=== PATIENT | female | born 1975 | race Two or more races ===

== ENCOUNTER 2016-10-14 17:00 | Emergency (ER) | payer SELFPAY ==
--- NOTE | 2016-10-14 17:32 | ER Document Report ---
ED Medical Screen (RME) - General Stated Complaint: NAUSEA Time seen by provider: 17:29 Mode of Arrival: Ambulatory Information source: Patient Notes: 41 yo female c/o burning LUQ abd pain for 3 days. Mild at first. Now 5/5 since 2 pm today. Soft BM today. No blood or mucos. No bowel disease. worse when sitting down, vomited 3 times today. No UTI sx, no flaank pain. No hx GERD TRAVEL OUTSIDE OF THE [place] IN LAST 30 DAYS: No - Related Data Allergies/Adverse Reactions: No Known Allergies Allergy (Verified 10/14/16 17:29) Past Medical History - Past Medical History Cardiac Medical History: Reports: Hx Hypertension Pulmonary Medical History: Denies: Hx Tuberculosis Neurological Medical History: Reports: Hx Migraine Endocrine Medical History: Denies: Hx Diabetes Mellitus Type 1, Hx Diabetes Mellitus Type 2 GI Medical History: Reports: Hx Diverticulitis. Denies: Hx Crohn's Disease, Hx Irritable Bowel, Hx Ulcerative Colitis Psychiatric Medical History: Denies: Hx Depression Past Surgical History: Reports: Hx Cholecystectomy. Denies: Hx Abdominal Surgery, Hx Appendectomy, Hx Bowel Surgery, Hx Breast Surgery, Hx Cardiac Catheterization, Hx Cardiac Surgery, Hx Section, Hx Genitourinary Surgery, Hx Gynecologic Surgery, Hx Hysterectomy, Hx Kidney (Renal Surgery), Hx Mastectomy, Hx Neurologic Surgery, Hx Nose Surgery, Hx Open Heart Surgery, Hx Oral Surgery, Hx Orthopedic Surgery, Hx Pacemaker, Hx Pancreatic Surgery, Hx Pituitary Surgery, Hx Rectal Surgery, Hx Thyroid Surgery, Hx Tonsillectomy, Hx Tubal Ligation, Hx Urinary Tract Surgery, Hx Vascular Surgery - Immunizations Hx Diphtheria, Pertussis, Tetanus Vaccination: No
[2016-10-14] MEDS ORDERED: LANSOPRAZOLE 30 MG TAB.RAP.DR PO ONE ×2 (17:33→19:01)
[2016-10-14] MEDS ORDERED: FAMOTIDINE 20 MG TABLET PO ONE (17:33)
[2016-10-14 18:03] LABS: ABSOLUTE BASOPHILS # (AUTO) 0.1 10^3/uL (0.0-0.2); ABSOLUTE EOSINOPHILS # (AUTO) 1.6 10^3/uL (0.0-0.6); ABSOLUTE LYMPHOCYTES (AUTO) 2.5 10^3/uL (0.5-4.7); ABSOLUTE MONOCYTES (AUTO) 0.6 10^3/uL (0.1-1.4); ABSOLUTE NEUT (AUTO) 4.4 10^3/uL (1.7-8.2); BASOPHILS % (AUTO) 1.1 % (0-2); EOSINOPHILS % (AUTO) 16.9 % (0-6); HEMATOCRIT 39.2 % (36.0-47.0); HEMOGLOBIN 13.1 g/dL (12.0-15.5); HGB HCT DIFFERENCE 0.1; LYMPHOCYTES % (AUTO) 27.3 % (13-45); MEAN CORPUSCULAR HEMOGLOBIN 28.5 pg (27.0-33.4); MEAN CORPUSCULAR HGB CONC 33.5 g/dL (32.0-36.0); MEAN CORPUSCULAR VOLUME 85 fl (80-97); MONOCYTES % (AUTO) 6.9 % (3-13); RED CELL DISTRIBUTION WIDTH 14.2 % (11.5-14.0); SEGMENTED NEUTROPHILS % (AUTO) 47.8 % (42-78); WHITE BLOOD COUNT 9.2 10^3/uL (4.0-10.5)
[2016-10-14 18:05] LABS: APPEARANCE,URINE CLEAR; BILIRUBIN,URINE NEGATIVE (NEGATIVE); GLUCOSE, URINE NEGATIVE (NEGATIVE); KETONES,URINE NEGATIVE (NEGATIVE); LEUKOCYTE ESTERASE,URINE NEGATIVE (NEGATIVE); NITRITE,URINE NEGATIVE (NEGATIVE); PROTEIN,URINE NEGATIVE (NEGATIVE); URINE SPECIFIC GRAVITY 1.009; UROBILINOGEN,URINE NEGATIVE mg/dL (<2.0)
[2016-10-14 18:11] LABS: ALANINE AMINOTRANSFERASE 26 U/L (9-52); ALBUMIN 4.4 g/dL (3.5-5.0); ALKALINE PHOSPHATASE 77 U/L (38-126); ANION GAP 10 (5-19); ASPARTATE AMINO TRANSFERASE 21 U/L (14-36); BILIRUBIN,TOTAL 0.5 mg/dL (0.2-1.3); BLOOD UREA NITROGEN 14 mg/dL (7-20); CALCIUM 9.7 mg/dL (8.4-10.2); CARBON DIOXIDE 27 mmol/L (22-30); CHLORIDE 104 mmol/L (98-107); CREATININE RESULT 0.64 mg/dL (0.52-1.25); GLUCOSE 88 mg/dL (75-110); POTASSIUM 4.4 mmol/L (3.6-5.0); SODIUM 141.3 mmol/L (137-145); TOTAL PROTEIN 7.6 g/dL (6.3-8.2)
--- NOTE | 2016-10-14 18:14 | ER Document Report ---
ED General - General Chief Complaint: Abdominal Pain Stated Complaint: NAUSEA Time seen by provider: 18:14 Mode of Arrival: Ambulatory Information source: Patient Notes: 41 year old female with 3 day history of epigastric and left upper quadrant pain with nausea and vomiting. He reports eating sometimes makes symptoms worse. Asbell of yesterday was normal. She denies diarrhea. Denies vaginal bleeding or discharge. Denies dysuria urgency frequency. He reports no chest pain or back pain. She denies any lower abdominal pain. She reports she is already had her gallbladder removed. Physical Exam: General: Alert, appears well. HEENT: Normocephalic. Atraumatic. PERRLA. Extraocular movements intact. Oropharynx clear. Neck: Supple. Non-tender. Respiratory: No respiratory distress. Clear and equal breath sounds bilaterally. Cardiovascular: Regular rate and rhythm. Abdominal: Mild epigastric and right or quadrant tenderness to deep palpation. No referred pain. No guarding rebound rigidity. Bowel sounds positive. Palpation of epigastric region and left upper quadrant reproduces patient's pain. Back: Non-tender. No deformity or step off. Extremities: Moves all four extremities. No gross deformity Neurological: Mentation clear speech clear no lateralizing signs Psychological: Normal affect. Normal Mood. Skin: Warm. Dry. Normal color. TRAVEL OUTSIDE OF THE [place] IN LAST 30 DAYS: No - Related Data Allergies/Adverse Reactions: No Known Allergies Allergy (Verified 10/14/16 17:31) Past Medical History - General Information source: Patient - Social History Smoking Status: Never Smoker Chew tobacco use (# tins/day): No Frequency of alcohol use: Occasional Drug Abuse: None Family History: CAD - Reports mother with stent placed in her 40s, Hypertension Patient has suicidal ideation: No Patient has homicidal ideation: No - Past Medical History Cardiac Medical History: Reports: Hx Hypertension Pulmonary Medical History: Denies: Hx Tuberculosis Neurological Medical History: Reports: Hx Migraine Endocrine Medical History: Denies: Hx Diabetes Mellitus Type 1, Hx Diabetes Mellitus Type 2 GI Medical History: Reports: Hx Diverticulitis. Denies: Hx Crohn's Disease, Hx Irritable Bowel, Hx Ulcerative Colitis Psychiatric Medical History: Denies: Hx Depression Past Surgical History: Reports: Hx Cholecystectomy. Denies: Hx Abdominal Surgery, Hx Appendectomy, Hx Bowel Surgery, Hx Breast Surgery, Hx Cardiac Catheterization, Hx Cardiac Surgery, Hx Section, Hx Genitourinary Surgery, Hx Gynecologic Surgery, Hx Hysterectomy, Hx Kidney (Renal Surgery), Hx Mastectomy, Hx Neurologic Surgery, Hx Nose Surgery, Hx Open Heart Surgery, Hx Oral Surgery, Hx Orthopedic Surgery, Hx Pacemaker, Hx Pancreatic Surgery, Hx Pituitary Surgery, Hx Rectal Surgery, Hx Thyroid Surgery, Hx Tonsillectomy, Hx Tubal Ligation, Hx Urinary Tract Surgery, Hx Vascular Surgery - Immunizations Hx Diphtheria, Pertussis, Tetanus Vaccination: No Hx Pneumococcal Vaccination: 10/07/14 Review of Systems - Review of Systems Constitutional: denies: Chills, Fever EENT: denies: Ear pain, Throat pain Cardiovascular: denies: Chest pain Respiratory: denies: Cough, Short of breath Gastrointestinal: See HPI Genitourinary: denies: Burning, Dysuria Female Genitourinary: Last menstrual period - September 28 normal for her. denies: Vaginal discharge Musculoskeletal: denies: Back pain Hematologic/Lymphatic: denies: Swollen glands Neurological/Psychological: denies: Weakness, Numbness Course - Re-evaluation Re-evalutation: 10/14/16 19:03 Patient reports no change in symptoms he does have mild epigastric and left upper quadrant pain. She does not have a surgical abdomen. Laboratory reports been unremarkable and her gallbladder is already out. She will be treated for gastritis with Prevacid and Carafate as an outpatient and asked to follow-up as outpatient - Laboratory Result Diagrams: 10/14/16 17:40 10/14/16 17:40 Laboratory results interpreted by me: 10/14/16 17:40 RDW 14.2 H Eosinophils % 16.9 H Absolute Eosinophils 1.6 H Discharge - Discharge Clinical Impression: Gastritis Qualifiers: Gastritis type: unspecified gastritis Chronicity: acute Gastritis bleeding: without bleeding Qualified Code(s): K29.00 - Acute gastritis without bleeding Condition: Stable Disposition: HOME, SELF-CARE Instructions: Abdominal Pain ([facility]) Additional Instructions: Gastritis You have an inflammation of the stomach called gastritis. This commonly causes upper abdominal pain, nausea, and vomiting. In severe cases, bleeding of the stomach lining can occur. Gastritis can be caused by bacteria or viruses , alcohol, or stomach-irritating drugs. Begin with sips of clear liquids. Take increasing amounts of fluid over the first 24 hours. Then start small amounts of bland foods (such as dry toast , applesauce, mashed potato). Gradually resume your usual diet. You should take antacids every two hours until the pain has subsided. Acid -suppressing drugs may be prescribed as well. Avoid aspirin, caffeine, tobacco , and alcohol. If the abdominal pain worsens, or there is evidence of major bleeding in the stomach (such as black, tarry stool, bloody or black vomit, or lightheadedness), you should return immediately. Call the doctor if you aren't improved in 24 to 36 hours. Prescriptions: Lansoprazole [Prevacid 30 Mg Odt Tablet] 30 mg PO BID #30 tab.rap. Sucralfate [Carafate 1 gm Tablet] 1 gm PO ACHS #60 tablet Referrals: ANTONIO CALVO MD [ACTIVE STAFF] - 10/22/16
[2016-10-14] MEDS ORDERED: SUCRALFATE 1 GM TABLET PO ONE (19:01)
[2016-10-14] MEDS ORDERED: LIDOCAINE 2% VISCOUS SOLN 20 ML UDCUP PO ONE (19:03)
[2016-10-14] MEDS ORDERED: METOCLOPRAMIDE HCL ORAL SOLN 10 MG/10 ML UDCUP PO ONE (19:03)
[2016-10-14] MEDS ORDERED: MAG HYDROX/AL HYDROX/SIMETH SUSP 30 ML UDCUP PO ONE (19:03)
[2016-10-14 19:41] VITALS: BP 128/77
== END 2016-10-14 19:40 | disposition home or self-care (01) ==
LOC: ER 17:00
DX: K29.00 Acute gastritis without bleeding (principal); R10.9 Unspecified abdominal pain; R11.0 Nausea; R10.13 Epigastric pain; R10.12 Left upper quadrant pain; R11.2 Nausea with vomiting, unspecified
CPT/HCPCS: 99284; 36415; 87086; 83690; 84703; 85025; 80053; 81001; J3490

== ENCOUNTER 2017-03-05 16:10 | Emergency (ER) | payer SELFPAY ==
[2017-03-05] MEDS ORDERED: METOPROLOL SUCCINATE 25 MG TAB.SR.24H PO ONE (18:53)
[2017-03-05] MEDS ORDERED: ONDANSETRON 4 MG TAB.RAPDIS PO ONE (18:54)
--- NOTE | 2017-03-05 18:56 | ER Document Report ---
ED Medical Screen (RME) - General Chief Complaint: Headache Stated Complaint: NAUSEA,ABDOMINAL AND BACK PAIN Time Seen by Provider: 03/05/17 18:45 Mode of Arrival: Ambulatory Information source: Patient Notes: This is a 41-year-old female with a history of hypertension who presents with headache and nausea for the past week. She states that she ran out of her metoprolol last week. She has an appointment with her primary care physician later this week to refill her medication. She has no current chest pain but did feel some chest pain last night while she was trying to sleep. She has had no vomiting only nausea. No fevers or chills. No vision changes. No numbness or tingling. I have greeted and performed a rapid initial assessment of this patient. A comprehensive ED assessment and evaluation of the patient, analysis of test results and completion of the medical decision making process will be conducted by additional ED providers. TRAVEL OUTSIDE OF THE [place] IN LAST 30 DAYS: No - Related Data Allergies/Adverse Reactions: No Known Allergies Allergy (Verified 03/05/17 18:28) Past Medical History - Past Medical History Cardiac Medical History: Reports: Hx Hypertension Pulmonary Medical History: Denies: Hx Tuberculosis Neurological Medical History: Reports: Hx Migraine Endocrine Medical History: Denies: Hx Diabetes Mellitus Type 1, Hx Diabetes Mellitus Type 2 Renal/ Medical History: Denies: Hx Peritoneal Dialysis GI Medical History: Reports: Hx Diverticulitis. Denies: Hx Crohn's Disease, Hx Irritable Bowel, Hx Ulcerative Colitis Psychiatric Medical History: Denies: Hx Depression Past Surgical History: Reports: Hx Cholecystectomy. Denies: Hx Abdominal Surgery, Hx Appendectomy, Hx Bowel Surgery, Hx Breast Surgery, Hx Cardiac Catheterization, Hx Cardiac Surgery, Hx Section, Hx Genitourinary Surgery, Hx Gynecologic Surgery, Hx Hysterectomy, Hx Kidney (Renal Surgery), Hx Mastectomy, Hx Neurologic Surgery, Hx Nose Surgery, Hx Open Heart Surgery, Hx Oral Surgery, Hx Orthopedic Surgery, Hx Pacemaker, Hx Pancreatic Surgery, Hx Pituitary Surgery, Hx Rectal Surgery, Hx Thyroid Surgery, Hx Tonsillectomy, Hx Tubal Ligation, Hx Urinary Tract Surgery, Hx Vascular Surgery - Immunizations Hx Diphtheria, Pertussis, Tetanus Vaccination: No Physical Exam - Vital signs Vitals: Temp Pulse Resp BP Pulse Ox 98.6 F 87 16 184/110 H 98 03/05/17 17:06 03/05/17 17:06 03/05/17 17:06 03/05/17 17:06 03/05/17 17:06 - General General appearance: Appears well, Alert In distress: None - Respiratory Respiratory status: No respiratory distress Breath sounds: Normal. No: Rales, Rhonchi, Wheezing - Cardiovascular Rhythm: Regular Heart sounds: Normal auscultation, S1 appreciated, S2 appreciated Murmur: No - Neurological Neuro grossly intact: Yes Cognition: Normal Orientation: AAOx4 Course - Vital Signs Vital signs: Temp Pulse Resp BP Pulse Ox 98.6 F 87 16 184/110 H 98 03/05/17 17:06 03/05/17 17:06 03/05/17 17:06 03/05/17 17:06 03/05/17 17:06 - Laboratory Result Diagrams: 03/05/17 19:04 03/05/17 19:04 Laboratory results interpreted by me: 03/05/17 03/05/17 19:04 19:04 RDW 14.1 H Eosinophils % 12.4 H Absolute Eosinophils 1.1 H Urine Blood MODERATE H Ur Leukocyte Esterase TRACE H
[2017-03-05 19:30] LABS: APPEARANCE,URINE CLOUDY; BILIRUBIN,URINE NEGATIVE (NEGATIVE); GLUCOSE, URINE NEGATIVE (NEGATIVE); KETONES,URINE NEGATIVE (NEGATIVE); LEUKOCYTE ESTERASE,URINE TRACE (NEGATIVE); NITRITE,URINE NEGATIVE (NEGATIVE); PROTEIN,URINE NEGATIVE (NEGATIVE); URINE SPECIFIC GRAVITY 1.009; UROBILINOGEN,URINE NEGATIVE mg/dL (<2.0)
[2017-03-05 19:31] LABS: ABSOLUTE BASOPHILS # (AUTO) 0.1 10^3/uL (0.0-0.2); ABSOLUTE EOSINOPHILS # (AUTO) 1.1 10^3/uL (0.0-0.6); ABSOLUTE LYMPHOCYTES (AUTO) 2.5 10^3/uL (0.5-4.7); ABSOLUTE MONOCYTES (AUTO) 0.5 10^3/uL (0.1-1.4); ABSOLUTE NEUT (AUTO) 4.7 10^3/uL (1.7-8.2); BASOPHILS % (AUTO) 0.9 % (0-2); EOSINOPHILS % (AUTO) 12.4 % (0-6); LYMPHOCYTES % (AUTO) 28.4 % (13-45); MEAN CORPUSCULAR HEMOGLOBIN 27.9 pg (27.0-33.4); MEAN CORPUSCULAR HGB CONC 33.4 g/dL (32.0-36.0); MEAN CORPUSCULAR VOLUME 84 fl (80-97); MONOCYTES % (AUTO) 5.5 % (3-13); RED BLOOD COUNT 4.66 10^6/uL (3.72-5.28); RED CELL DISTRIBUTION WIDTH 14.1 % (11.5-14.0); SEGMENTED NEUTROPHILS % (AUTO) 52.8 % (42-78); WHITE BLOOD COUNT 8.9 10^3/uL (4.0-10.5)
[2017-03-05 19:39] LABS: ALANINE AMINOTRANSFERASE 27 U/L (9-52); ALBUMIN 4.2 g/dL (3.5-5.0); ALKALINE PHOSPHATASE 107 U/L (38-126); ANION GAP 11 (5-19); ASPARTATE AMINO TRANSFERASE 20 U/L (14-36); BILIRUBIN,DIRECT 0.3 mg/dL (0.0-0.4); BILIRUBIN,TOTAL 0.5 mg/dL (0.2-1.3); BLOOD UREA NITROGEN 13 mg/dL (7-20); CALCIUM 9.7 mg/dL (8.4-10.2); CARBON DIOXIDE 25 mmol/L (22-30); CHLORIDE 103 mmol/L (98-107); CREATINE KINASE 77 U/L (30-135); CREATININE RESULT 0.64 mg/dL (0.52-1.25); GLUCOSE 93 mg/dL (75-110); POTASSIUM 4.4 mmol/L (3.6-5.0); SODIUM 138.8 mmol/L (137-145); TOTAL PROTEIN 8.1 g/dL (6.3-8.2)
[2017-03-05 19:50] LABS: CREATINE KINASE MB 0.51 ng/mL (<4.55); TROPONIN I < 0.012 ng/mL
[2017-03-05] MEDS ORDERED: DIPHENHYDRAMINE HCL 50 MG/ML VIAL IV ONE (20:16)
[2017-03-05] MEDS ORDERED: KETOROLAC TROMETHAMINE INJ/PF 30 MG/1 ML SDV IV ONE (20:16)
[2017-03-05] MEDS ORDERED: NORMAL SALINE 1000 ML 1,000 ML IV PRN (20:16)
[2017-03-05] MEDS ORDERED: METOCLOPRAMIDE HCL INJ/PF 10 MG/2 ML SDV IV ONE (20:16)
[2017-03-05] MEDS ORDERED: CLONIDINE HCL 0.1 MG TABLET PO ONE (20:16)
--- NOTE | 2017-03-05 20:19 | ER Document Report ---
ED General - General Chief Complaint: Headache Stated Complaint: NAUSEA,ABDOMINAL AND BACK PAIN Time Seen by Provider: 03/05/17 18:45 Mode of Arrival: Ambulatory Information source: Patient TRAVEL OUTSIDE OF THE [place] IN LAST 30 DAYS: No - HPI Patient complains to provider of: Headache, nausea, dizziness, suprapubic pain Onset: Last week Onset/Duration: Persistent Quality of pain: Achy Severity: Moderate Pain Level: 3 Associated symptoms: Chills, Headache, Nausea Exacerbated by: Denies Relieved by: Denies Similar symptoms previously: No Recently seen / treated by doctor: No Notes: Patient is a 41-year-old female with a history of hypertension who presents to the emergency room complaining of headache with high blood pressure, cold chills , nausea next, dizziness, neck pain, symptoms have been going on for the past 3 days, she ran out of her blood pressure medication approximately 1 week ago, denies any injury, no vomiting, no fever - Related Data Allergies/Adverse Reactions: No Known Allergies Allergy (Verified 03/05/17 18:28) Past Medical History - General Information source: Patient - Social History Smoking Status: Never Smoker Frequency of alcohol use: Occasional Family History: CAD - Reports mother with stent placed in her 40s, Hypertension - Past Medical History Cardiac Medical History: Reports: Hx Hypertension Pulmonary Medical History: Denies: Hx Tuberculosis Neurological Medical History: Reports: Hx Migraine Endocrine Medical History: Denies: Hx Diabetes Mellitus Type 1, Hx Diabetes Mellitus Type 2 Renal/ Medical History: Denies: Hx Peritoneal Dialysis GI Medical History: Reports: Hx Diverticulitis. Denies: Hx Crohn's Disease, Hx Irritable Bowel, Hx Ulcerative Colitis Psychiatric Medical History: Denies: Hx Depression Past Surgical History: Reports: Hx Cholecystectomy. Denies: Hx Abdominal Surgery, Hx Appendectomy, Hx Bowel Surgery, Hx Breast Surgery, Hx Cardiac Catheterization, Hx Cardiac Surgery, Hx Section, Hx Genitourinary Surgery, Hx Gynecologic Surgery, Hx Hysterectomy, Hx Kidney (Renal Surgery), Hx Mastectomy, Hx Neurologic Surgery, Hx Nose Surgery, Hx Open Heart Surgery, Hx Oral Surgery, Hx Orthopedic Surgery, Hx Pacemaker, Hx Pancreatic Surgery, Hx Pituitary Surgery, Hx Rectal Surgery, Hx Thyroid Surgery, Hx Tonsillectomy, Hx Tubal Ligation, Hx Urinary Tract Surgery, Hx Vascular Surgery - Immunizations Hx Diphtheria, Pertussis, Tetanus Vaccination: No Hx Pneumococcal Vaccination: 10/07/14 Review of Systems - Review of Systems Constitutional: No symptoms reported EENT: No symptoms reported Cardiovascular: Chest pain Respiratory: No symptoms reported Gastrointestinal: See HPI Genitourinary: No symptoms reported Female Genitourinary: No symptoms reported Musculoskeletal: See HPI Skin: No symptoms reported Hematologic/Lymphatic: No symptoms reported Neurological/Psychological: Headaches -: Yes All other systems reviewed and negative Physical Exam - Vital signs Vitals: Temp Pulse Resp BP Pulse Ox 98.6 F 87 16 184/110 H 98 03/05/17 17:06 03/05/17 17:06 03/05/17 17:06 03/05/17 17:06 03/05/17 17:06 Interpretation: Hypertensive - General General appearance: Appears well, Alert - HEENT Head: Normocephalic, Atraumatic Eyes: Normal Pupils: PERRL - Respiratory Respiratory status: No respiratory distress Chest status: Nontender Breath sounds: Normal Chest palpation: Normal - Cardiovascular Rhythm: Regular Heart sounds: Normal auscultation Murmur: No - Abdominal Inspection: Normal Distension: No distension Bowel sounds: Normal Tenderness: Tender - Suprapubic Organomegaly: No organomegaly - Back Back: Normal, Nontender - Extremities General upper extremity: Normal inspection, Nontender, Normal color, Normal ROM , Normal temperature General lower extremity: Normal inspection, Nontender, Normal color, Normal ROM , Normal temperature, Normal weight bearing. No: Darinel's sign - Neurological Neuro grossly intact: Yes Cognition: Normal Orientation: AAOx4 Julio Coma Scale Eye Opening: Spontaneous [place] Coma Scale Verbal: Oriented Julio Coma Scale Motor: Obeys Commands Julio Coma Scale Total: 15 Speech: Normal Motor strength normal: LUE, RUE, LLE, RLE Sensory: Normal - Psychological Associated symptoms: Normal affect, Normal mood - Skin Skin Temperature: Warm Skin Moisture: Dry Skin Color: Normal Course - Re-evaluation Re-evalutation: 03/05/17 22:09 Reports feeling much better on reevaluation, headache is resolved, blood pressure is improved, she will be discharged with antibiotics and blood pressure medication as well as information for follow-up, imaging studies were discussed with her well, which are unremarkable, patient acknowledges understanding and agreement with this plan - Vital Signs Vital signs: Temp Pulse Resp BP Pulse Ox 98.6 F 87 16 133/94 H 99 03/05/17 17:06 03/05/17 17:06 03/05/17 17:06 03/05/17 21:31 03/05/17 21:31 - Laboratory Result Diagrams: 03/05/17 19:04 03/05/17 19:04 Laboratory results interpreted by me: 03/05/17 03/05/17 19:04 19:04 RDW 14.1 H Eosinophils % 12.4 H Absolute Eosinophils 1.1 H Urine Blood MODERATE H Ur Leukocyte Esterase TRACE H - Diagnostic Test Radiology reviewed: Image reviewed, Reports reviewed Discharge - Discharge Clinical Impression: Essential hypertension Urinary tract infection Qualifiers: Urinary tract infection type: site unspecified Hematuria presence: without hematuria Qualified Code(s): N39.0 - Urinary tract infection, site not specified Condition: Stable Disposition: HOME, SELF-CARE Instructions: Urinary Tract Infection ([facility]), Headache ([facility]), High Blood Pressure ([facility]) Additional Instructions: Follow up with your primary care provider in one to 2 days. Return to the emergency room immediately if symptoms worsen or any additional concerns. Prescriptions: Metoprolol Succinate [Toprol Xl] 25 mg PO QHS #30 tab.sr.24h Cephalexin Monohydrate [Keflex 500 mg Capsule] 500 mg PO BID #20 capsule
--- NOTE | 2017-03-05 21:06 | RADIOLOGY REPORT (SQ) ---
EXAM DESCRIPTION: CHEST PA/LAT COMPLETED DATE/TIME: 03/05/2017 8:56 pm REASON FOR STUDY: cp COMPARISON: None. EXAM PARAMETERS: NUMBER OF VIEWS: two views TECHNIQUE: Digital Frontal and Lateral radiographic views of the chest acquired. RADIATION DOSE: NA LIMITATIONS: none FINDINGS: LUNGS AND PLEURA: No opacities, masses or pneumothorax. No pleural effusion. MEDIASTINUM AND HILAR STRUCTURES: No masses or contour abnormalities. HEART AND VASCULAR STRUCTURES: The configuration of the heart and mediastinal structures is unchanged BONES: No acute findings. HARDWARE: None in the chest. OTHER: No other significant finding. IMPRESSION: NO SIGNIFICANT RADIOGRAPHIC FINDING IN THE CHEST. TECHNICAL DOCUMENTATION: JOB ID: [id number] [employer]- All Rights Reserved
--- NOTE | 2017-03-05 21:28 | RADIOLOGY REPORT (SQ) ---
EXAM DESCRIPTION: CT HEAD WITHOUT COMPLETED DATE/TIME: 03/05/2017 9:10 pm REASON FOR STUDY: COMBS, htn COMPARISON: June 2013 TECHNIQUE: Axial images acquired through the brain without intravenous contrast. Images reviewed wi th bone, brain and subdural windows. Images stored on PACS. All CT scanners at this facility use dose modulation, iterative reconstruction, and/or weight based d osing when appropriate to reduce radiation dose to as low as reasonably achievable (ALARA). [facility]: Dose Right [facility]: CareDose [facility]: Dose Right [facility]: Teradose 4D [facility]: [employer] RADIATION DOSE: 64.61 mGy. LIMITATIONS: None. FINDINGS: VENTRICLES: Normal size and contour. CEREBRUM: No masses. No hemorrhage. No midline shift. Normal hernandez/white matter differentiation. N o evidence for acute infarction. CEREBELLUM: No masses. No hemorrhage. No alteration of density. No evidence for acute infarction. EXTRAAXIAL SPACES: No fluid collections. No masses. ORBITS AND GLOBE: No intra- or extraconal masses. Normal contour of globe without masses. CALVARIUM: No fracture. PARANASAL SINUSES: No fluid or mucosal thickening. SOFT TISSUES: No mass or hematoma. OTHER: No other significant finding. IMPRESSION: NORMAL BRAIN CT WITHOUT CONTRAST. TECHNICAL DOCUMENTATION: JOB ID: [id number] Quality ID # [id number]: Final reports with documentation of one or more dose reduction techniques (e.g., Au tomated exposure control, adjustment of the mA and/or kV according to patient size, use of iterative reconstruction technique) 2010 [employer]- All Rights Reserved
[2017-03-05] MEDS ORDERED: CEPHALEXIN 500 MG CAPSULE PO ONE (22:12)
[2017-03-05 22:27] VITALS: BP 121/85
--- NOTE | 2017-03-06 00:29 | EKG REPORT ---
SEVERITY:- BORDERLINE ECG - SINUS RHYTHM BORDERLINE T ABNORMALITIES, ANTERIOR LEADS : Confirmed by: Juan Daniel Banuelos 06-Mar-2017 00:28:59
== END 2017-03-05 22:31 | disposition home or self-care (01) ==
LOC: ER 16:10
DX: I10 Essential (primary) hypertension (principal); N39.0 Urinary tract infection, site not specified; R51 Headache; R11.0 Nausea; R42 Dizziness and giddiness; R10.2 Pelvic and perineal pain; Z90.49 Acquired absence of other specified parts of digestive tract
CPT/HCPCS: 93005; 99285; 96374; 96375; 36415; 82553; 82550; 84703; 85025; 80053; 81001; 84484; 71020; 70450; 93010; J1200; S0119; J1885; J2765; J7030

== ENCOUNTER 2017-06-26 23:50 | Emergency (ER) | payer SELFPAY ==
--- NOTE | 2017-06-27 01:57 | ER Document Report ---
ED General - General Chief Complaint: Chest Pain Stated Complaint: CHEST PAIN Time Seen by Provider: 06/27/17 01:55 Notes: Patient is a 41-year-old female. She is a peak speaking. They were unable to find our [employer] [facility] aide computer and therefore I used our emergency nuclear medicine medical director, Bernie, to help interpret. She is fluent in Portuguese. She is instructed to translate my conversation with the patient exactly as I stated and then translate patient's answers back exactly as she said some. Health Therapist did a very good job in doing this. Patient is a 41-year-old female who presents with complaint of left-sided chest pain. She says started around 6 PM. She said earlier today she did find out that her dad had a heart issue and had a brain bleed. She says she does not her know her dad very well. She says that around 6 PM started having chest pain the left upper side of her chest. She denies difficulty breathing. She denies vomiting. No some nausea. Some dizziness. Her chief complaints on her triage form said headache however the patient denies having a headache to me. She denies any recent fevers or infections. She denies any personal history of cardiac disease. She says her mother did have a heart condition but she does not know what it is. She does take metoprolol due to history of high blood pressure. She takes no other medications. She says her pain is worse when she lays flat. She does not smoke or do drugs. TRAVEL OUTSIDE OF THE [place] IN LAST 30 DAYS: Yes - Related Data Allergies/Adverse Reactions: No Known Allergies Allergy (Verified 03/05/17 18:28) Past Medical History - Social History Smoking Status: Never Smoker Frequency of alcohol use: Occasional Drug Abuse: None Family History: CAD - Reports mother with stent placed in her 40s, Hypertension Patient has suicidal ideation: No Patient has homicidal ideation: No - Past Medical History Cardiac Medical History: Reports: Hx Hypertension Pulmonary Medical History: Denies: Hx Tuberculosis Neurological Medical History: Reports: Hx Migraine Endocrine Medical History: Denies: Hx Diabetes Mellitus Type 1, Hx Diabetes Mellitus Type 2 Renal/ Medical History: Denies: Hx Peritoneal Dialysis GI Medical History: Reports: Hx Diverticulitis. Denies: Hx Crohn's Disease, Hx Irritable Bowel, Hx Ulcerative Colitis Psychiatric Medical History: Denies: Hx Depression Past Surgical History: Reports: Hx Cholecystectomy. Denies: Hx Abdominal Surgery, Hx Appendectomy, Hx Bowel Surgery, Hx Breast Surgery, Hx Cardiac Catheterization, Hx Cardiac Surgery, Hx Section, Hx Genitourinary Surgery, Hx Gynecologic Surgery, Hx Hysterectomy, Hx Kidney (Renal Surgery), Hx Mastectomy, Hx Neurologic Surgery, Hx Nose Surgery, Hx Open Heart Surgery, Hx Oral Surgery, Hx Orthopedic Surgery, Hx Pacemaker, Hx Pancreatic Surgery, Hx Pituitary Surgery, Hx Rectal Surgery, Hx Thyroid Surgery, Hx Tonsillectomy, Hx Tubal Ligation, Hx Urinary Tract Surgery, Hx Vascular Surgery - Immunizations Hx Diphtheria, Pertussis, Tetanus Vaccination: No Hx Pneumococcal Vaccination: 10/07/14 Review of Systems - Review of Systems Notes: My Normal Review Basic REVIEW OF SYSTEMS: CONSTITUTIONAL : Denies fever, chills, or sweats. Denies recent illness. EENT: Denies eye, ear, throat, or mouth pain or symptoms. Denies nasal or sinus congestion. CARDIOVASCULAR: Chest pain RESPIRATORY: Denies cough, cold, or chest congestion. Denies shortness of breath, difficulty breathing, or wheezing. GASTROINTESTINAL: Denies abdominal pain. Denies nausea, vomiting, or diarrhea. Denies constipation. Last BM: MP: MUSCULOSKELETAL: Denies neck or back pain or joint pain or swelling. SKIN: Denies rash or skin lesions. NEUROLOGICAL: Denies altered mental status or loss of consciousness. Denies headache. Denies weakness or paralysis or loss of use of either side. Denies problems with gait or speech. Denies sensory or motor loss. ALL OTHER SYSTEMS REVIEWED AND NEGATIVE. Physical Exam - Vital signs Vitals: Temp Pulse Resp BP Pulse Ox 98.6 F 71 18 165/86 H 98 06/27/17 00:14 06/27/17 00:14 06/27/17 00:14 06/27/17 00:14 06/27/17 00:14 - Notes Notes: General Appearance: Well nourished, alert, cooperative, no acute distress, no obvious discomfort. Vitals: reviewed, See vital signs table. Head: no swelling or tenderness to the head Eyes: PERRL, EOMI, Conjuctiva clear Mouth: No decreasd moisture Chest wall: Patient does have reproducible pain to palpation over left upper chest wall. Neck: Supple, no neck tenderness, No thyromegaly rhonci, No accessory muscle use , good air exchange bilaterally. Heart: Normal rate, Regular rythm, No murmur, no rub Abdomen: Normal BS, soft, No rigidity, No abdominal tenderness, No guarding, no rebound, no abdominal masses, no organomegaly Extremities: strength 5/5 in all extremities, good pulses in all extremities, no swelling or tenderness in the extremities, no edema. Skin: warm, dry, appropriate color, no rash Neuro: speech clear, oriented x 3, normal affect, responds appropriately to questions. Course - Re-evaluation Re-evalutation: 06/27/17 05:34 Patient's 2 EKGs show no evidence of MIs. Her troponin delta troponin are both negative. She has a heart score of 2. Feel that she is safe for outpatient follow-up and evaluation. She is feeling improved. Her pain is easily reproducible palpation of the left upper chest. At this time I feel she is safe to be discharged home. Encouraged her return to ER immediately if she has recurrent worsening chest pain, difficulty breathing, or feels unwell. I did talk to her about her need for follow-up with her primary care doctor. Her primary care doctor is [facility] and she agrees to follow-up with them closely within the week. 06/27/17 05:38 Dictation of this chart was performed using voice recognition software; therefore, there may be some unintended grammatical errors. - Vital Signs Vital signs: Temp Pulse Resp BP Pulse Ox 98.6 F 71 18 165/86 H 98 06/27/17 00:14 06/27/17 00:14 06/27/17 00:14 06/27/17 00:14 06/27/17 00:14 - Laboratory Result Diagrams: 06/27/17 02:20 06/27/17 02:20 Laboratory results interpreted by me: 06/27/17 02:20 Hgb 11.9 L Hct 35.7 L Eosinophils % (Manual) 10 H Absolute Eos (Manual) 0.8 H - EKG Interpretation by Me Additional EKG results interpreted by me: 06/27/17 01:56 EKG is reviewed and interpreted by me. EKG shows normal sinus rhythm with rate of [address] segment elevation or depression. No ischemic T-wave inversions. IA interval, QRS duration, QTc intervals are within normal range. No old EKG available for comparison. 06/27/17 05:38 EKG #2 is reviewed and interpreted by me. EKG shows normal sinus rhythm with rate of 66 bpm. Patient has very small less than [address] segment elevation in lead V5. She has no reciprocal ST segment depressions. No ischemic T-wave inversions. IA interval, QRS duration, QTc intervals are within normal range. 06/27/17 05:39 Discharge - Discharge Clinical Impression: Chest pain Qualifiers: Chest pain type: unspecified Qualified Code(s): R07.9 - Chest pain, unspecified Condition: Good Disposition: HOME, SELF-CARE Additional Instructions: Please return to the ER immediately if you have worsening chest pain, difficulty breathing, or fel that you are wrosening. You cardiac enzymes and EKG were normal today. It is still important that you follow up with your primary care doctor. Please talk to them about potentially having a cardiac stress test perforemed if you continue to have any pain.
[2017-06-27 02:36] LABS: HEMATOCRIT 35.7 % (36.0-47.0); HEMOGLOBIN 11.9 g/dL (12.0-15.5); MEAN CORPUSCULAR HGB CONC 33.4 g/dL (32.0-36.0); MEAN CORPUSCULAR VOLUME 84 fl (80-97); RED BLOOD COUNT 4.26 10^6/uL (3.72-5.28); RED CELL DISTRIBUTION WIDTH 13.8 % (11.5-14.0); WHITE BLOOD COUNT 8.3 10^3/uL (4.0-10.5)
[2017-06-27 02:42] LABS: ALANINE AMINOTRANSFERASE 36 U/L (9-52); ALBUMIN 3.9 g/dL (3.5-5.0); ALKALINE PHOSPHATASE 91 U/L (38-126); ANION GAP 10 (5-19); ASPARTATE AMINO TRANSFERASE 30 U/L (14-36); BILIRUBIN,DIRECT 0.3 mg/dL (0.0-0.4); BILIRUBIN,TOTAL 0.4 mg/dL (0.2-1.3); BLOOD UREA NITROGEN 15 mg/dL (7-20); CALCIUM 9.1 mg/dL (8.4-10.2); CARBON DIOXIDE 24 mmol/L (22-30); CHLORIDE 107 mmol/L (98-107); CREATINE KINASE 80 U/L (30-135); CREATININE RESULT 0.71 mg/dL (0.52-1.25); GLUCOSE 92 mg/dL (75-110); POTASSIUM 4.1 mmol/L (3.6-5.0); SODIUM 140.6 mmol/L (137-145); TOTAL PROTEIN 7.1 g/dL (6.3-8.2)
[2017-06-27 02:53] LABS: BASOPHILS % (MANUAL) 1 % (0-2); EOSINOPHILS % (MANUAL) 10 % (0-6); LYMPHOCYTES % (MANUAL) 28 % (13-45); TOTAL CELLS COUNTED 100
[2017-06-27 02:55] LABS: CREATINE KINASE MB 0.52 ng/mL (<4.55)
[2017-06-27 02:56] LABS: POLYCHROMASIA SLIGHT
[2017-06-27 02:58] LABS: TROPONIN I < 0.012 ng/mL
--- NOTE | 2017-06-27 03:00 | RADIOLOGY REPORT (SQ) ---
EXAM DESCRIPTION: CHEST SINGLE VIEW COMPLETED DATE/TIME: 06/27/2017 2:15 am REASON FOR STUDY: chest pain COMPARISON: 03/05/2017. 06/28/2015. EXAM PARAMETERS: NUMBER OF VIEWS: One view. TECHNIQUE: Single frontal radiographic view of the chest acquired. RADIATION DOSE: NA LIMITATIONS: None. FINDINGS: LUNGS AND PLEURA: No opacities, masses or pneumothorax. No pleural effusion. MEDIASTINUM AND HILAR STRUCTURES: No masses. Contour normal. HEART AND VASCULAR STRUCTURES: Mild enlargement of the cardiac silhouette. BONES: No acute findings. HARDWARE: Right upper abdominal clips. OTHER: No other significant finding. IMPRESSION: No acute cardiopulmonary findings. Mild chronic cardiac enlargement. TECHNICAL DOCUMENTATION: JOB ID: [id number]
[2017-06-27] MEDS ORDERED: KETOROLAC TROMETHAMINE INJ/PF 30 MG/1 ML SDV IV ONE (03:17)
[2017-06-27] MEDS ORDERED: KETOROLAC TROMETHAMINE INJ/PF 30 MG/1 ML SDV IM ONE (03:34)
[2017-06-27 07:02] VITALS: BP 127/88
--- NOTE | 2017-06-27 07:33 | EKG REPORT ---
SEVERITY:- NORMAL ECG - SINUS RHYTHM : Confirmed by: Toby Snell MD 27-Jun-2017 07:32:27
--- NOTE | 2017-06-27 07:33 | EKG REPORT ---
SEVERITY:- NORMAL ECG - SINUS RHYTHM : Confirmed by: Toby Snell MD 27-Jun-2017 07:32:20
== END 2017-06-27 07:02 | disposition home or self-care (01) ==
LOC: ER 23:50
DX: R07.9 Chest pain, unspecified (principal)
CPT/HCPCS: 93005; 99285; 96372; 36415; 82553; 82550; 85025; 80053; 84484; 71010; 93010; J1885

== ENCOUNTER 2017-09-14 01:23 | Emergency (ER) | payer SELFPAY ==
[2017-09-14 01:31] VITALS: BP 156/98
[2017-09-14] MEDS ORDERED: PREDNISONE 20 MG TABLET PO ONE (02:18)
[2017-09-14] MEDS ORDERED: IPRATROPIUM/ALBUTEROL 0.5-2.5 MG/3 ML AMPUL NEB ONE (02:19)
--- NOTE | 2017-09-14 03:16 | RADIOLOGY REPORT (SQ) ---
EXAM DESCRIPTION: CHEST PA/LAT CLINICAL HISTORY: 41 years, Female, sob COMPARISON: None. NUMBER OF VIEWS: 2 FINDINGS: Adequate lung volumes, clear parenchyma, normal cardiac silhouette, right upper abdominal clips, and intact bony skeleton. IMPRESSION: No acute cardiopulmonary findings. 2011 [employer]- All Rights Reserved
[2017-09-14] MEDS ORDERED: ALBUTEROL SULFATE HFA (90 MCG/PUFF) 8 GM MDI (1 MDI/ER DISP) IH ONE (03:37)
--- NOTE | 2017-09-14 03:43 | ER Document Report ---
ED General - General Chief Complaint: Breathing Difficulty Stated Complaint: DIFFICULTY BREATHING Time Seen by Provider: 09/14/17 02:18 TRAVEL OUTSIDE OF THE [place] IN LAST 30 DAYS: No - HPI Patient complains to provider of: Shortness of breath diffuse myalgias hoarse voice Notes: Patient states above-stated symptoms ongoing for the last 4 days. States no sick contacts no recent travel no recent antibiotics. Patient states she did receive a flu shot this year denies any fevers or chills nausea vomiting diarrhea denies specific chest pain or abdominal pain states mostly aches all over. Patient does have a hoarse voice. Patient otherwise looks to be no obvious distress upon my evaluation. - Related Data Allergies/Adverse Reactions: No Known Allergies Allergy (Verified 08/12/17 15:23) Past Medical History - Social History Smoking Status: Never Smoker Chew tobacco use (# tins/day): No Frequency of alcohol use: None Drug Abuse: None Family History: CAD - Reports mother with stent placed in her 40s, Hypertension Patient has suicidal ideation: No Patient has homicidal ideation: No - Past Medical History Cardiac Medical History: Reports: Hx Hypertension Pulmonary Medical History: Denies: Hx Tuberculosis Neurological Medical History: Reports: Hx Migraine Endocrine Medical History: Denies: Hx Diabetes Mellitus Type 1, Hx Diabetes Mellitus Type 2 Renal/ Medical History: Denies: Hx Peritoneal Dialysis GI Medical History: Reports: Hx Diverticulitis. Denies: Hx Crohn's Disease, Hx Irritable Bowel, Hx Ulcerative Colitis Psychiatric Medical History: Denies: Hx Depression Past Surgical History: Reports: Hx Cholecystectomy. Denies: Hx Abdominal Surgery, Hx Appendectomy, Hx Bowel Surgery, Hx Breast Surgery, Hx Cardiac Catheterization, Hx Cardiac Surgery, Hx Section, Hx Genitourinary Surgery, Hx Gynecologic Surgery, Hx Hysterectomy, Hx Kidney (Renal Surgery), Hx Mastectomy, Hx Neurologic Surgery, Hx Nose Surgery, Hx Open Heart Surgery, Hx Oral Surgery, Hx Orthopedic Surgery, Hx Pacemaker, Hx Pancreatic Surgery, Hx Pituitary Surgery, Hx Rectal Surgery, Hx Thyroid Surgery, Hx Tonsillectomy, Hx Tubal Ligation, Hx Urinary Tract Surgery, Hx Vascular Surgery - Immunizations Hx Diphtheria, Pertussis, Tetanus Vaccination: No Hx Pneumococcal Vaccination: 10/07/14 Review of Systems - Review of Systems Constitutional: No symptoms reported EENT: No symptoms reported Cardiovascular: No symptoms reported Respiratory: Cough, Short of breath Gastrointestinal: No symptoms reported Genitourinary: No symptoms reported Female Genitourinary: No symptoms reported Musculoskeletal: No symptoms reported Skin: No symptoms reported Hematologic/Lymphatic: No symptoms reported Neurological/Psychological: No symptoms reported -: Yes All other systems reviewed and negative Physical Exam - Vital signs Vitals: Temp Pulse Resp BP Pulse Ox 98.5 F 85 24 H 156/98 H 99 09/14/17 01:30 09/14/17 01:30 09/14/17 01:30 09/14/17 01:30 09/14/17 01:30 Interpretation: Normal - General General appearance: Appears well, Alert - HEENT Head: Normocephalic, Atraumatic Eyes: Normal Conjunctiva: Normal Cornea: Normal Pupils: PERRL Nasal: Normal Mouth/Lips: Normal Pharynx: Normal Neck: Normal - Respiratory Respiratory status: No respiratory distress Chest status: Nontender Breath sounds: Rhonchi, Wheezing Chest palpation: Normal - Cardiovascular Rhythm: Regular Heart sounds: Normal auscultation Murmur: No - Abdominal Inspection: Normal Distension: No distension Bowel sounds: Normal Tenderness: Nontender Organomegaly: No organomegaly - Back Back: Normal, Nontender - Extremities General upper extremity: Normal inspection, Nontender, Normal color, Normal ROM , Normal temperature General lower extremity: Normal inspection, Nontender, Normal color, Normal ROM , Normal temperature, Normal weight bearing. No: Darinel's sign - Neurological Neuro grossly intact: Yes Cognition: Normal Orientation: AAOx4 Julio Coma Scale Eye Opening: Spontaneous Julio Coma Scale Verbal: Oriented Julio Coma Scale Motor: Obeys Commands Julio Coma Scale Total: 15 Speech: Normal Motor strength normal: LUE, RUE, LLE, RLE Sensory: Normal - Psychological Associated symptoms: Normal affect, Normal mood - Skin Skin Temperature: Warm Skin Moisture: Dry Skin Color: Normal Course - Re-evaluation Re-evalutation: 09/14/17 04:49 Patient more likely with a URI. Patient will be discharged home better after inhaler. Patient will be given albuterol and steroids. - Vital Signs Vital signs: Temp Pulse Resp BP Pulse Ox 98.5 F 85 24 H 156/98 H 99 09/14/17 01:30 09/14/17 01:30 09/14/17 01:30 09/14/17 01:30 09/14/17 01:30 Discharge - Discharge Clinical Impression: Bronchitis Condition: Good Disposition: HOME, SELF-CARE Instructions: Bronchitis With Bronchospasm (Wheezing) ([facility]) Additional Instructions: Follow-up with your primary care physician. Your chest x-ray does not show any signs of pneumonia. Her symptoms are more likely due to underlying bronchitis or inflammation of the airways. We treat this with bronchodilators such as the albuterol that we gave you please take 2 puffs every 4 hours for the next 5 days then as needed for shortness of breath. He also start you on steroids. Please take steroids as prescribed. Return to ER symptoms worsen. Prescriptions: Prednisone [Deltasone] 60 mg PO DAILY #24 tablet Forms: Return to Work Referrals: CHRISTIE OCHOA MD [Primary Care Provider] - Follow up as needed
== END 2017-09-14 03:52 | disposition home or self-care (01) ==
LOC: ER 01:23
DX: J40 Bronchitis, not specified as acute or chronic (principal); R06.02 Shortness of breath; M79.1 Myalgia; R49.0 Dysphonia
CPT/HCPCS: 94640; 99284; 71020; J7512; J3490; J7620

== ENCOUNTER 2017-10-16 16:41 | Emergency (ER) | payer SELFPAY ==
[2017-10-16] MEDS ORDERED: IPRATROPIUM/ALBUTEROL 0.5-2.5 MG/3 ML AMPUL NEB ONE (18:12)
[2017-10-16] MEDS ORDERED: IBUPROFEN 800 MG TABLET PO ONE (18:12)
[2017-10-16] MEDS ORDERED: LIDOCAINE 5% (700 MG) TRANSDERMAL ADH..PATCH TP ONE (18:12)
--- NOTE | 2017-10-16 18:14 | ER Document Report ---
HPI - HPI Patient complains to provider of: Cough Onset: Other - 1 month Onset/Duration: Persistent Quality of pain: Achy Pain Level: 4 Context: Patient presents complaining of nonproductive cough for the past month. Patient states that her left upper back will hurt whenever she coughs. Patient denies any fever, nausea or vomiting. Patient states that she did see her primary doctor yesterday who put her on an antibiotic and a cough medication. Patient denies any improvement in her symptoms. Associated Symptoms: Nonproductive cough. denies: Chest pain, Chills, Fever, Nausea, Vomiting Exacerbated by: Movement, Coughing Relieved by: Denies Similar symptoms previously: No Recently seen / treated by doctor: Yes - ROS ROS below otherwise negative: Yes Systems Reviewed and Negative: Yes All other systems reviewed and negative - CONSTITUTIONAL Constitutional: DENIES: Fever, Chills - EENT EENT: REPORTS: Congestion. DENIES: Sore Throat - NEURO Neurology: REPORTS: Headache - CARDIOVASCULAR Cardiovascular: DENIES: Chest pain - RESPIRATORY Respiratory: REPORTS: Coughing - GASTROINTESTINAL Gastrointestinal: DENIES: Nausea, Patient vomiting - REPRODUCTIVE Reproductive: DENIES: : - MUSCULOSKELETAL Musculoskeletal: REPORTS: Back Pain. DENIES: Extremity pain, Neck Pain - DERM Skin Color: Normal Skin Problems: None Past Medical History - General Information source: Patient - Social History Smoking Status: Never Smoker Frequency of alcohol use: Occasional Drug Abuse: None Occupation: None Lives with: Family Family History: CAD - Reports mother with stent placed in her 40s, Hypertension - Past Medical History Cardiac Medical History: Reports: Hx Hypertension Pulmonary Medical History: Denies: Hx Tuberculosis Neurological Medical History: Reports: Hx Migraine Endocrine Medical History: Denies: Hx Diabetes Mellitus Type 1, Hx Diabetes Mellitus Type 2 Renal/ Medical History: Denies: Hx Peritoneal Dialysis GI Medical History: Reports: Hx Diverticulitis. Denies: Hx Crohn's Disease, Hx Irritable Bowel, Hx Ulcerative Colitis Psychiatric Medical History: Denies: Hx Depression Past Surgical History: Reports: Hx Cholecystectomy - Immunizations Hx Diphtheria, Pertussis, Tetanus Vaccination: No Hx Pneumococcal Vaccination: 10/07/14 Vertical Provider Document - CONSTITUTIONAL Agree With Documented VS: Yes Exam Limitations: No Limitations General Appearance: WD/WN, No Apparent Distress - INFECTION CONTROL TRAVEL OUTSIDE OF THE [place] IN LAST 30 DAYS: No - HEENT HEENT: Atraumatic, Normal ENT Exam, Normocephalic - NECK Neck: Normal Inspection, Supple. negative: Lymphadenopathy-Left, Lymphadenopathy-Right - RESPIRATORY Respiratory: No Respiratory Distress, Chest Non-Tender, Wheezing - with cough only O2 Sat by Pulse Oximetry: 100 - CARDIOVASCULAR Cardiovascular: Regular Rate, Regular Rhythm, No Murmur - BACK Back: Abnormal Inspection - Left upper thoracic back tenderness with cough or palpation. negative: CVA Tenderness-Right, CVA Tenderness-Left - MUSCULOSKELETAL/EXTREMETIES Musculoskeletal/Extremeties: MAEW, FROM, Non-Tender - NEURO Level of Consciousness: Awake, Alert, Appropriate Motor/Sensory: No Motor Deficit - DERM Integumentary: Warm, Dry, No Rash Course - Re-evaluation Re-evalutation: 10/16/17 19:30 Patient reports feeling much better after nebulizer treatment. Breath sounds clear this time, wheezing resolved. Discussed results of patient's diagnostic test with patient. Patient encouraged to follow-up with primary doctor for recheck. 10/16/17 19:30 Patient not tachycardic or hypoxic, no chest pain, no concern for PE at this time. 10/16/17 23:13 - Vital Signs Vital signs: Temp Pulse Resp BP Pulse Ox 98.8 F 79 16 155/93 H 100 10/16/17 17:04 10/16/17 17:04 10/16/17 17:04 10/16/17 17:04 10/16/17 17:04 - Laboratory Result Diagrams: 10/16/17 18:50 10/16/17 18:50 Laboratory results interpreted by me: 10/16/17 19:30 Labs- Entire Visit 10/16/17 10/16/17 10/16/17 18:50 18:50 18:50 WBC 9.6 RBC 4.25 Hgb 11.8 L Hct 35.0 L MCV 83 MCH 27.8 MCHC 33.7 RDW 14.9 H Plt Count 309 Seg Neutrophils % 54.8 Lymphocytes % 27.0 Monocytes % 6.0 Eosinophils % 11.4 H Basophils % 0.8 Absolute Neutrophils 5.2 Absolute Lymphocytes 2.6 Absolute Monocytes 0.6 Absolute Eosinophils 1.1 H Absolute Basophils 0.1 D-Dimer 0.42 Sodium 139.7 Potassium 4.5 Chloride 104 Carbon Dioxide 27 Anion Gap 9 BUN 13 Creatinine 0.71 Est GFR ( Amer) > 60 Est GFR (Non-Af Amer) > 60 Glucose 95 Calcium 9.7 Total Bilirubin 0.2 Direct Bilirubin 0.2 Neonat Total Bilirubin Not Reportable Neonat Direct Bilirubin Not Reportable Neonat Indirect Bili Not Reportable AST 29 ALT 39 Alkaline Phosphatase 82 Total Protein 7.3 Albumin 4.2 - Diagnostic Test Radiology reviewed: Reports reviewed Discharge - Discharge Clinical Impression: Hx of essential hypertension, Bronchitis, Wheezing Upper back strain Qualifiers: Encounter type: initial encounter Qualified Code(s): S29.012A - Strain of muscle and tendon of back wall of thorax, initial encounter Condition: Stable Disposition: HOME, SELF-CARE Instructions: Bronchitis With Bronchospasm (Wheezing) ([facility]), Inhaled Bronchodilators ([facility]), Steroid Medication, Upper Back Strain ([facility]) Additional Instructions: Return immediately for any new or worsening symptoms Followup with your primary care provider, call tomorrow to make a followup appointment Finish the antibiotics that you were already previously started on. Prescriptions: Cyclobenzaprine HCl [Flexeril 10 Mg Tablet] 10 mg PO TID #15 tablet Prednisone [Deltasone 20 mg Tablet] 3 tab PO DAILY 4 Days tablet Forms: Elevated Blood Pressure Referrals: [facility] [Provider Group] - Follow up tomorrow
[2017-10-16 19:07] LABS: ABSOLUTE BASOPHILS # (AUTO) 0.1 10^3/uL (0.0-0.2); ABSOLUTE EOSINOPHILS # (AUTO) 1.1 10^3/uL (0.0-0.6); ABSOLUTE LYMPHOCYTES (AUTO) 2.6 10^3/uL (0.5-4.7); ABSOLUTE MONOCYTES (AUTO) 0.6 10^3/uL (0.1-1.4); ABSOLUTE NEUT (AUTO) 5.2 10^3/uL (1.7-8.2); BASOPHILS % (AUTO) 0.8 % (0-2); EOSINOPHILS % (AUTO) 11.4 % (0-6); HEMOGLOBIN 11.8 g/dL (12.0-15.5); MEAN CORPUSCULAR HEMOGLOBIN 27.8 pg (27.0-33.4); MEAN CORPUSCULAR HGB CONC 33.7 g/dL (32.0-36.0); MEAN CORPUSCULAR VOLUME 83 fl (80-97); PLATELET COUNT 309 10^3/uL (150-450); RED BLOOD COUNT 4.25 10^6/uL (3.72-5.28); RED CELL DISTRIBUTION WIDTH 14.9 % (11.5-14.0); SEGMENTED NEUTROPHILS % (AUTO) 54.8 % (42-78); TOTAL CELLS COUNTED % (AUTO) 100 %; WHITE BLOOD COUNT 9.6 10^3/uL (4.0-10.5)
--- NOTE | 2017-10-16 19:15 | RADIOLOGY REPORT (SQ) ---
EXAM DESCRIPTION: CHEST PA/LAT COMPLETED DATE/TIME: 10/16/2017 7:05 pm REASON FOR STUDY: cough, back pain COMPARISON: 09/14/2017. EXAM PARAMETERS: NUMBER OF VIEWS: two views TECHNIQUE: Digital Frontal and Lateral radiographic views of the chest acquired. RADIATION DOSE: NA LIMITATIONS: none FINDINGS: LUNGS AND PLEURA: No opacities, masses or pneumothorax. No pleural effusion. MEDIASTINUM AND HILAR STRUCTURES: No masses or contour abnormalities. HEART AND VASCULAR STRUCTURES: Heart normal size. No evidence for failure. BONES: No acute findings. HARDWARE: None in the chest. OTHER: No other significant finding. IMPRESSION: NO SIGNIFICANT RADIOGRAPHIC FINDING IN THE CHEST. TECHNICAL DOCUMENTATION: JOB ID: [id number]- All Rights Reserved
[2017-10-16 19:25] LABS: ALANINE AMINOTRANSFERASE 39 U/L (9-52); ALBUMIN 4.2 g/dL (3.5-5.0); ALKALINE PHOSPHATASE 82 U/L (38-126); ANION GAP 9 (5-19); ASPARTATE AMINO TRANSFERASE 29 U/L (14-36); BILIRUBIN,DIRECT 0.2 mg/dL (0.0-0.4); BILIRUBIN,TOTAL 0.2 mg/dL (0.2-1.3); BLOOD UREA NITROGEN 13 mg/dL (7-20); CALCIUM 9.7 mg/dL (8.4-10.2); CARBON DIOXIDE 27 mmol/L (22-30); CHLORIDE 104 mmol/L (98-107); GLUCOSE 95 mg/dL (75-110); POTASSIUM 4.5 mmol/L (3.6-5.0); SODIUM 139.7 mmol/L (137-145); TOTAL PROTEIN 7.3 g/dL (6.3-8.2)
[2017-10-16] MEDS ORDERED: ALBUTEROL SULFATE HFA (90 MCG/PUFF) 8 GM MDI (1 MDI/ER DISP) IH PRN (19:32)
[2017-10-16] MEDS ORDERED: PREDNISONE 20 MG TABLET PO ONE (19:32)
[2017-10-16 19:58] VITALS: BP 138/89
== END 2017-10-16 19:54 | disposition home or self-care (01) ==
LOC: ER 16:41
DX: S29.012A Strain of muscle and tendon of back wall of thorax, initial encounter (principal); X58.XXXA Exposure to other specified factors, initial encounter; J40 Bronchitis, not specified as acute or chronic; R06.2 Wheezing; I10 Essential (primary) hypertension; Z90.49 Acquired absence of other specified parts of digestive tract
CPT/HCPCS: 94640; 99285; 36415; 85025; 80053; 85379; 71046; J7512; J3490; J7620

== ENCOUNTER 2018-08-18 17:37 | Emergency (ER) | payer SELFPAY ==
[2018-08-18] MEDS ORDERED: ASPIRIN 81 MG TABLET, CHEWABLE PO ONE (18:43)
[2018-08-18] MEDS ORDERED: ASPIRIN 81 MG TABLET, CHEWABLE ONE (18:46)
[2018-08-18 19:12] LABS: ABSOLUTE BASOPHILS # (AUTO) 0.1 10^3/uL (0.0-0.2); ABSOLUTE EOSINOPHILS # (AUTO) 1.3 10^3/uL (0.0-0.6); ABSOLUTE LYMPHOCYTES (AUTO) 2.5 10^3/uL (0.5-4.7); ABSOLUTE MONOCYTES (AUTO) 0.7 10^3/uL (0.1-1.4); ABSOLUTE NEUT (AUTO) 5.3 10^3/uL (1.7-8.2); BASOPHILS % (AUTO) 0.9 % (0-2); EOSINOPHILS % (AUTO) 13.7 % (0-6); HEMATOCRIT 41.2 % (36.0-47.0); MEAN CORPUSCULAR HEMOGLOBIN 28.1 pg (27.0-33.4); MEAN CORPUSCULAR HGB CONC 33.9 g/dL (32.0-36.0); MEAN CORPUSCULAR VOLUME 83 fl (80-97); MONOCYTES % (AUTO) 6.8 % (3-13); PLATELET COUNT 310 10^3/uL (150-450); RED BLOOD COUNT 4.96 10^6/uL (3.72-5.28); RED CELL DISTRIBUTION WIDTH 14.4 % (11.5-14.0); SEGMENTED NEUTROPHILS % (AUTO) 53.6 % (42-78); TOTAL CELLS COUNTED % (AUTO) 100 %; WHITE BLOOD COUNT 9.8 10^3/uL (4.0-10.5)
--- NOTE | 2018-08-18 19:19 | RADIOLOGY REPORT (SQ) ---
EXAM DESCRIPTION: CHEST SINGLE VIEW COMPLETED DATE/TIME: 08/18/2018 7:11 pm REASON FOR STUDY: Palpitations COMPARISON: 10/16/2017 EXAM PARAMETERS: NUMBER OF VIEWS: One view. TECHNIQUE: Single frontal radiographic view of the chest acquired. RADIATION DOSE: NA LIMITATIONS: None. FINDINGS: LUNGS AND PLEURA: No opacities, masses or pneumothorax. No pleural effusion. MEDIASTINUM AND HILAR STRUCTURES: No masses. Contour normal. HEART AND VASCULAR STRUCTURES: Heart normal in size. Normal vasculature. BONES: No acute findings. HARDWARE: None in the chest. OTHER: No other significant finding. IMPRESSION: NO ACUTE RADIOGRAPHIC FINDING IN THE CHEST. TECHNICAL DOCUMENTATION: JOB ID: [id number] [employer]- All Rights Reserved Reading location - IP/workstation name: [email or web address]
--- NOTE | 2018-08-18 19:21 | ER Document Report ---
ED General - General Chief Complaint: Palpitations Stated Complaint: HEARTBEAT ISSUE, CHEST PAIN Time Seen by Provider: 08/18/18 19:02 Mode of Arrival: Ambulatory Information source: Patient, [facility] Records Notes: 42-year-old female with hypertension, diverticulitis, migraine headaches presents via private vehicle with complaint of palpitations. Patient states that she was seen at a weight loss clinic earlier and her exam revealed an irregular heart rhythm. Patient states that she has been experiencing intermittent palpitations for approximately 3 months since being started on metoprolol and clonidine for her blood pressure. Patient denies any significant pain, associated shortness of breath, diaphoresis, nausea, vomiting , back pain, lightheadedness, abdominal pain, dysuria, hematuria. She does admit to a mild aching headache located in her forehead that she has experienced intermittently for several weeks. She states that she has not yet started the weight loss supplements. Last menstrual period was 1 week prior to arrival. TRAVEL OUTSIDE OF THE [place] IN LAST 30 DAYS: No - HPI Onset: This afternoon Onset/Duration: Intermittent Quality of pain: No pain Associated symptoms: denies: Chest pain, Chills, Nonproductive cough, Productive cough, Fever, Headache, Hurts to breath, Leg swelling, Nausea, Vomiting, Shortness of breath Exacerbated by: Denies Relieved by: Denies Similar symptoms previously: Yes Recently seen / treated by doctor: Yes - Related Data Allergies/Adverse Reactions: No Known Allergies Allergy (Verified 10/16/17 16:44) Past Medical History - General Information source: Patient, [facility] Records - Social History Smoking Status: Never Smoker Frequency of alcohol use: None Drug Abuse: None Lives with: Family Family History: CAD - Reports mother with stent placed in her 40s, Hypertension Patient has suicidal ideation: No Patient has homicidal ideation: No - Past Medical History Cardiac Medical History: Reports: Hx Hypertension Pulmonary Medical History: Denies: Hx Tuberculosis Neurological Medical History: Reports: Hx Migraine Endocrine Medical History: Denies: Hx Diabetes Mellitus Type 1, Hx Diabetes Mellitus Type 2 Renal/ Medical History: Denies: Hx Peritoneal Dialysis GI Medical History: Reports: Hx Diverticulitis. Denies: Hx Crohn's Disease, Hx Irritable Bowel, Hx Ulcerative Colitis Psychiatric Medical History: Denies: Hx Depression Past Surgical History: Reports: Hx Cholecystectomy. Denies: Hx Abdominal Surgery, Hx Appendectomy, Hx Bowel Surgery, Hx Breast Surgery, Hx Cardiac Catheterization, Hx Cardiac Surgery, Hx Section, Hx Genitourinary Surgery, Hx Gynecologic Surgery, Hx Hysterectomy, Hx Kidney (Renal Surgery), Hx Mastectomy, Hx Neurologic Surgery, Hx Nose Surgery, Hx Open Heart Surgery, Hx Oral Surgery, Hx Orthopedic Surgery, Hx Pacemaker, Hx Pancreatic Surgery, Hx Pituitary Surgery, Hx Rectal Surgery, Hx Thyroid Surgery, Hx Tonsillectomy, Hx Tubal Ligation, Hx Urinary Tract Surgery, Hx Vascular Surgery - Immunizations Hx Diphtheria, Pertussis, Tetanus Vaccination: No Hx Pneumococcal Vaccination: 10/07/14 Review of Systems - Review of Systems Notes: REVIEW OF SYSTEMS: CONSTITUTIONAL : Denies fever, chills, or sweats. Denies recent illness. Denies weight loss, recent hospitalizations. EENT: Denies visual changes, eye pain. Denies sore throat, oral lesions, difficulty swallowing. CARDIOVASCULAR: Denies chest pain. Denies lower extremity edema. RESPIRATORY: Denies cough. Denies shortness of breath, wheezing. GASTROINTESTINAL: Denies abdominal pain or distention. Denies nausea, vomiting , or diarrhea. Denies blood in vomitus, stools, or per rectum. Denies black, tarry stools. Denies constipation. GENITOURINARY: Denies difficulty urinating, painful urination, frequency, blood in urine, or vaginal discharge. MUSCULOSKELETAL: Denies back or neck pain or stiffness. Denies joint pain or swelling. SKIN: Denies rash, lesions or sores. HEMATOLOGIC : Denies easy bruising or bleeding. LYMPHATIC: Denies swollen glands. NEUROLOGICAL: Denies confusion or altered mental status. Denies loss of consciousness. Denies dizziness or lightheadedness. Denies weakness or paralysis. Denies problems difficulty with ambulation, slurred speech. Denies sensory loss, numbness, or tingling. Denies seizures. PSYCHIATRIC: Denies anxiety or stress. Denies depression, suicidal ideation, or homicidal ideation. Denies visual or auditory hallucinations. Physical Exam - Vital signs Vitals: Temp Pulse Resp BP Pulse Ox 98.4 F 90 18 188/107 H 98 08/18/18 18:12 08/18/18 18:12 08/18/18 18:12 08/18/18 18:12 08/18/18 18:12 Interpretation: Hypertensive - Notes Notes: PHYSICAL EXAMINATION: GENERAL: Well-appearing, well-nourished and in no acute distress. HEAD: Atraumatic, normocephalic. EYES: Pupils equal round and reactive to light, extraocular movements intact, conjunctiva are normal. ENT: Nares patent, oropharynx clear without exudates. Moist mucous membranes. NECK: Normal range of motion, supple without lymphadenopathy LUNGS: Breath sounds clear to auscultation bilaterally and equal. No wheezes rales or rhonchi. HEART: Regular rate and rhythm without murmurs ABDOMEN: Soft, nontender, nondistended abdomen. No guarding, no rebound. No masses appreciated. Female : deferred Musculoskeletal: Normal range of motion, no pitting or edema. No cyanosis. NEUROLOGICAL: Cranial nerves grossly intact. Normal speech, normal gait. Normal sensory, motor exams PSYCH: Normal mood, normal affect. SKIN: Warm, Dry, normal turgor, no rashes or lesions noted. Course - Re-evaluation Re-evalutation: Laboratory 08/18/18 08/18/18 08/18/18 19:00 19:00 19:00 WBC 9.8 RBC 4.96 Hgb 14.0 Hct 41.2 MCV 83 MCH 28.1 MCHC 33.9 RDW 14.4 H Plt Count 310 Seg Neutrophils % 53.6 Lymphocytes % 25.0 Monocytes % 6.8 Eosinophils % 13.7 H Basophils % 0.9 Absolute Neutrophils 5.3 Absolute Lymphocytes 2.5 Absolute Monocytes 0.7 Absolute Eosinophils 1.3 H Absolute Basophils 0.1 Sodium 141.8 Potassium 4.2 Chloride 102 Carbon Dioxide 27 Anion Gap 13 BUN 17 Creatinine 0.64 Est GFR ( Amer) > 60 Est GFR (Non-Af Amer) > 60 Glucose 96 Calcium 9.7 Total Bilirubin 0.4 Direct Bilirubin 0.3 Neonat Total Bilirubin Not Reportable Neonat Direct Bilirubin Not Reportable Neonat Indirect Bili Not Reportable AST 24 ALT 16 Alkaline Phosphatase 107 Creatine Kinase 71 CK-MB (CK-2) 0.76 Troponin I < 0.012 Total Protein 8.8 H Albumin 4.6 TSH Free T4 Free T3 pg/mL 08/18/18 08/18/18 08/18/18 19:00 19:00 22:00 WBC RBC Hgb Hct MCV MCH MCHC RDW Plt Count Seg Neutrophils % Lymphocytes % Monocytes % Eosinophils % Basophils % Absolute Neutrophils Absolute Lymphocytes Absolute Monocytes Absolute Eosinophils Absolute Basophils Sodium Potassium Chloride Carbon Dioxide Anion Gap BUN Creatinine Est GFR ( Amer) Est GFR (Non-Af Amer) Glucose Calcium Total Bilirubin Direct Bilirubin Neonat Total Bilirubin Neonat Direct Bilirubin Neonat Indirect Bili AST ALT Alkaline Phosphatase Creatine Kinase CK-MB (CK-2) Troponin I Cancelled 0.019 Total Protein Albumin TSH 2.28 Free T4 1.11 Free T3 pg/mL 3.89 Chest X-Ray 08/18/18 18:43 IMPRESSION: NO ACUTE RADIOGRAPHIC FINDING IN THE CHEST. 08/19/18 02:43 42-year-old female with hypertension, diverticulitis, migraine headaches presents via private vehicle with complaint of palpitations. Patient states that she was seen at a weight loss clinic earlier and her exam revealed an irregular heart rhythm. Patient states that she has been experiencing intermittent palpitations for approximately 3 months since being started on metoprolol and clonidine for her blood pressure. Patient denies any significant pain, associated shortness of breath, diaphoresis, nausea, vomiting , back pain, lightheadedness. Vital signs reviewed upon arrival. Patient is hypertensive but this resolved without intervention. Upon arrival patient was placed on bus monitor and EKG was obtained which showed the patient to be in normal sinus rhythm with ventricular bigeminy. Causes of this could be hypertension which the patient has and is not currently being compliant with her blood pressure medication, coronary artery disease, thyroid complications which does not appear to be the case at this time. CBC, CMP, urinalysis and thyroid levels are all within normal limits. Delta troponin also within normal limits. I did explain that the patient would likely need further outpatient testing which could include an ultrasound of her heart. HEART Score: History-0 ECG-1 Age-0 Risk Factors-1 Troponin-0 Total: 2 If HEART score is = 3 AND both troponin measurements are normal, the 30 day risk of a major adverse cardiac event (all-cause mortality, myocardial infarction or need for coronary revascularization) is < 1% (Sensitivity 100%, NPV 100%). Chest pain in a patient without evidence of cardiac or other serious etiology on workup today. I discussed with patient that, based on their age, risk factors and emergency department testing today, the likelihood that their symptoms are related to a heart attack is very low (estimated risk of heart attack or over the next 30 days of less than 1%). The patient demonstrates decision making capacity and has verbalized an understanding of these risks to me. Based on this, the patient has chosen to follow-up as an outpatient. Usual chest pain return precautions reviewed. The patient states understanding and agreement with this plan. 08/19/18 02:43 - Vital Signs Vital signs: Temp Pulse Resp BP Pulse Ox 98.2 F 90 16 107/62 100 08/18/18 23:19 08/18/18 18:12 08/18/18 23:19 08/18/18 23:19 08/18/18 23:19 - Laboratory Result Diagrams: 08/18/18 19:00 08/18/18 19:00 Laboratory results interpreted by me: 08/18/18 08/18/18 19:00 19:00 RDW 14.4 H Eosinophils % 13.7 H Absolute Eosinophils 1.3 H Total Protein 8.8 H - Diagnostic Test Radiology reviewed: Image reviewed, Reports reviewed - EKG Interpretation by Me EKG shows normal: Sinus rhythm Rate: Normal Rhythm: NSR, PVC's, Other - Ventricular bigeminy When compared to previous EKG there are: Changes noted Discharge - Discharge Clinical Impression: Ventricular bigeminy, Palpitations, Elevated blood pressure reading Condition: Good Disposition: HOME, SELF-CARE Instructions: Palpitations (Irregular or Rapid Heartrate) ([facility]) Additional Instructions: You were seen today for chest pain. The exact cause of your pain is unclear. However, based on your cardiac enzyme testing, chest x-ray, and EKG it does not appear that it is from an immediately life-threatening cause at this time. Although your testing here is normal is critical that you follow-up with your primary care physician for continued evaluation of this chest pain and possible stress testing. I recommended you see your physician within the next 24-48 hours to be evaluated for consideration of a stress test. Please return to emergency department immediately if you have worsening of your chest pain, shortness of breath, vomiting, become unable to exert yourself due to pain or difficulty breathing, you pass out, or have any pain that radiates into your arms, jaw, or back. Please also return if you have any additional symptoms that are concerning to you. Your EKG showed bigeminy. This is often not a dangerous heart rhythm but it will require follow-up with your primary care physician. This can cause the palpitations that you have been experiencing. There is no evidence of cardiac damage on your labs or EKG. Your thyroid levels are normal. And you have no electrolyte abnormalities which can often cause this rhythm. Other causes can be elevated blood pressure and coronary artery disease. Please take your labs with you to your physician that I have provided for you today. Forms: Elevated Blood Pressure Referrals: MARYBEL MATUTE PA-C [NO LOCAL MD] - Follow up tomorrow
[2018-08-18 19:35] LABS: ALANINE AMINOTRANSFERASE 16 U/L (9-52); ALBUMIN 4.6 g/dL (3.5-5.0); ALKALINE PHOSPHATASE 107 U/L (38-126); ANION GAP 13 (5-19); ASPARTATE AMINO TRANSFERASE 24 U/L (14-36); BILIRUBIN,DIRECT 0.3 mg/dL (0.0-0.4); BILIRUBIN,TOTAL 0.4 mg/dL (0.2-1.3); BLOOD UREA NITROGEN 17 mg/dL (7-20); CALCIUM 9.7 mg/dL (8.4-10.2); CARBON DIOXIDE 27 mmol/L (22-30); CHLORIDE 102 mmol/L (98-107); CREATINE KINASE 71 U/L (30-135); GLUCOSE 96 mg/dL (75-110); POTASSIUM 4.2 mmol/L (3.6-5.0); SODIUM 141.8 mmol/L (137-145); TOTAL PROTEIN 8.8 g/dL (6.3-8.2)
[2018-08-18 19:47] LABS: CREATINE KINASE MB 0.76 ng/mL (<4.55)
[2018-08-18 19:48] LABS: TROPONIN I < 0.012 ng/mL
--- NOTE | 2018-08-18 20:13 | EKG REPORT ---
SEVERITY:- ABNORMAL ECG - SINUS TACHYCARDIA VENTRICULAR BIGEMINY : Confirmed by: Juan Daniel Banuelos 18-Aug-2018 20:12:16
[2018-08-18 20:15] LABS: FREE T3 3.89 pg/mL (2.77-5.27); FREE T4 (FREE THYROXINE) 1.11 ng/dL (0.78-2.19)
[2018-08-18 20:29] LABS: THYROID STIMULATING HORMONE 2.28 uIU/mL (0.47-4.68)
[2018-08-18 23:23] VITALS: BP 107/62
== END 2018-08-18 23:23 | disposition home or self-care (01) ==
LOC: ER 17:37
DX: R00.8 Other abnormalities of heart beat (principal); R00.2 Palpitations; R07.9 Chest pain, unspecified; R03.0 Elevated blood-pressure reading, without diagnosis of hypertension; I10 Essential (primary) hypertension; Z90.49 Acquired absence of other specified parts of digestive tract
CPT/HCPCS: 36415; 71045; 80053; 82550; 82553; 84439; 84443; 84481; 84484; 85025; 93005; 93010; 99285

== ENCOUNTER 2018-09-18 17:33 | Emergency (ER) | payer SELFPAY ==
--- NOTE | 2018-09-18 19:36 | RADIOLOGY REPORT (SQ) ---
EXAM DESCRIPTION: KUB/ABDOMEN (SINGLE VIEW) COMPLETED DATE/TIME: 09/18/2018 7:23 pm REASON FOR STUDY: Abdominal pain COMPARISON: None. NUMBER OF VIEWS: One view. TECHNIQUE: Supine radiographic image of the abdomen acquired. LIMITATIONS: None. FINDINGS: BOWEL GAS PATTERN: Normal bowel gas pattern. No dilated loops. CALCIFICATIONS: No suspicious calcifications. SOFT TISSUES: No gross mass or suggestion of organomegaly. HARDWARE: None in the abdomen. BONES: No acute fracture. No worrisome bone lesions. OTHER: No other significant finding. IMPRESSION: NO RADIOGRAPHIC EVIDENCE FOR ACUTE ABDOMINAL DISEASE. TECHNICAL DOCUMENTATION: JOB ID: [id number] [employer]- All Rights Reserved Reading location - IP/workstation name: [email or web address]
[2018-09-18] MEDS ORDERED: DICYCLOMINE HCL 20 MG TABLET PO ONE (19:48)
[2018-09-18] MEDS ORDERED: KETOROLAC TROMETHAMINE 60 MG/2 ML SDV IM ONE (19:48)
[2018-09-18 20:00] LABS: ABSOLUTE BASOPHILS # (AUTO) 0.1 10^3/uL (0.0-0.2); ABSOLUTE LYMPHOCYTES (AUTO) 2.7 10^3/uL (0.5-4.7); ABSOLUTE MONOCYTES (AUTO) 0.5 10^3/uL (0.1-1.4); ABSOLUTE NEUT (AUTO) 4.7 10^3/uL (1.7-8.2); BASOPHILS % (AUTO) 0.9 % (0-2); EOSINOPHILS % (AUTO) 11.2 % (0-6); HEMATOCRIT 33.7 % (36.0-47.0); HEMOGLOBIN 11.8 g/dL (12.0-15.5); LYMPHOCYTES % (AUTO) 29.7 % (13-45); MEAN CORPUSCULAR HEMOGLOBIN 29.1 pg (27.0-33.4); MEAN CORPUSCULAR VOLUME 83 fl (80-97); MONOCYTES % (AUTO) 5.9 % (3-13); PLATELET COUNT 320 10^3/uL (150-450); RED BLOOD COUNT 4.06 10^6/uL (3.72-5.28); RED CELL DISTRIBUTION WIDTH 13.8 % (11.5-14.0); SEGMENTED NEUTROPHILS % (AUTO) 52.3 % (42-78); TOTAL CELLS COUNTED % (AUTO) 100 %; WHITE BLOOD COUNT 8.9 10^3/uL (4.0-10.5)
--- NOTE | 2018-09-18 20:04 | ER Document Report ---
ED GI/ - General Chief Complaint: Abdominal Pain Stated Complaint: RIGHT SIDE/BACK PAIN Time Seen by Provider: 09/18/18 18:43 Mode of Arrival: Ambulatory Information source: Patient Notes: Chief complaint: abdominal pain: History of complain:( obtained from----patient) 42 years old female, status post cholecystectomy, was having abdominal pain particularly on the right side for the last couple of days. Primary care physician ordered an ultrasound of the right upper quadrant, she could not do it because she did not have insurance. Therefore came to the ED. The pain is associated with cramps and nausea. No vomiting. No fever chills or other constitutional symptoms. Denies any diarrhea or constipations. Onset: Gradual Duration: Last several days Severity: Mild to moderate Quality: Crampy Context: Unknown Exacerbating factor and relieving factors: Eating REVIEW OF SYSTEMS: CONSTITUTIONAL : Denies fever, chills, or sweats. Denies recent illness. EENT: Denies eye, ear, throat, or mouth pain or symptoms. Denies nasal or sinus congestion or discharge. Denies throat, tongue, or mouth swelling or difficulty swallowing. CARDIOVASCULAR: Denies chest pain. Denies palpitations or racing or irregular heart beat. Denies ankle edema. RESPIRATORY: Denies cough, cold, or chest congestion. Denies shortness of breath, difficulty breathing, or wheezing. GASTROINTESTINAL: Denies distention. Denies nausea, vomiting, or diarrhea. Denies blood in vomitus, stools, or per rectum. Denies black, tarry stools. Denies constipation. GENITOURINARY: Denies difficulty urinating, painful urination, burning, frequency, blood in urine, or discharge. FEMALE GENITOURINARY: Denies vaginal bleeding, heavy or abnormal periods, irregular periods. Denies vaginal discharge or odor. MUSCULOSKELETAL: Denies back or neck pain or stiffness. Denies joint pain or swelling. SKIN: Denies rash, lesions or sores. HEMATOLOGIC : Denies easy bruising or bleeding. LYMPHATIC: Denies swollen, enlarged glands. NEUROLOGICAL: Denies confusion or altered mental status. Denies passing out or loss of consciousness. Denies dizziness or lightheadedness. Denies headache. Denies weakness or paralysis or loss of use of either side. Denies problems with gait or speech. Denies sensory loss, numbness, or tingling. Denies seizures. PSYCHIATRIC: Denies anxiety or stress. Denies depression, suicidal ideation, or homicidal ideation. ALL OTHER SYSTEMS REVIEWED AND NEGATIVE. PHYSICAL EXAMINATION: GENERAL: Well-appearing, well-nourished and in no acute distress. Obese HEAD: Atraumatic, normocephalic. EYES: Pupils equal round and reactive to light, extraocular movements intact, conjunctiva are normal. ENT: Nares patent, oropharynx clear without exudates. Moist mucous membranes. NECK: Normal range of motion, supple without lymphadenopathy LUNGS: Breath sounds clear to auscultation bilaterally and equal. No wheezes rales or rhonchi. HEART: Regular rate and rhythm without murmurs ABDOMEN: Soft, mild to moderate tenderness over the right side of the abdomen as well as left side of the abdomen, nondistended abdomen. No guarding, no rebound. No masses appreciated. Female : deferred Musculoskeletal: Normal range of motion, no pitting or edema. No cyanosis. NEUROLOGICAL: Cranial nerves grossly intact. Normal speech, normal gait. Normal sensory, motor exams PSYCH: Normal mood, normal affect. SKIN: Warm, Dry, normal turgor, no rashes or lesions noted. Dictation was performed using [employer] voice recognition software TRAVEL OUTSIDE OF THE [place] IN LAST 30 DAYS: No - HPI Notes: 09/18/18 20:02 Dictated - Related Data Allergies/Adverse Reactions: No Known Allergies Allergy (Verified 10/16/17 16:44) Past Medical History - Social History Smoking Status: Never Smoker Frequency of alcohol use: Rare Drug Abuse: None Lives with: Family Family History: Reviewed & Not Pertinent, CAD - Reports mother with stent placed in her 40s, Hypertension Patient has suicidal ideation: No Patient has homicidal ideation: No - Past Medical History Cardiac Medical History: Reports: Hx Hypertension Pulmonary Medical History: Denies: Hx Tuberculosis Neurological Medical History: Reports: Hx Migraine Endocrine Medical History: Denies: Hx Diabetes Mellitus Type 1, Hx Diabetes Mellitus Type 2 Renal/ Medical History: Denies: Hx Peritoneal Dialysis GI Medical History: Reports: Hx Diverticulitis. Denies: Hx Crohn's Disease, Hx Irritable Bowel, Hx Ulcerative Colitis Psychiatric Medical History: Denies: Hx Depression Past Surgical History: Reports: Hx Cholecystectomy. Denies: Hx Abdominal Surgery, Hx Appendectomy, Hx Bowel Surgery, Hx Breast Surgery, Hx Cardiac Catheterization, Hx Cardiac Surgery, Hx Section, Hx Genitourinary Surgery, Hx Gynecologic Surgery, Hx Hysterectomy, Hx Kidney (Renal Surgery), Hx Mastectomy, Hx Neurologic Surgery, Hx Nose Surgery, Hx Open Heart Surgery, Hx Oral Surgery, Hx Orthopedic Surgery, Hx Pacemaker, Hx Pancreatic Surgery, Hx Pituitary Surgery, Hx Rectal Surgery, Hx Thyroid Surgery, Hx Tonsillectomy, Hx Tubal Ligation, Hx Urinary Tract Surgery, Hx Vascular Surgery - Immunizations Hx Diphtheria, Pertussis, Tetanus Vaccination: No Hx Pneumococcal Vaccination: 10/07/14 Review of Systems - Review of Systems Notes: Dictated Physical Exam - Vital signs Vitals: Temp Pulse Resp BP Pulse Ox 98.7 F 77 16 155/93 H 96 09/18/18 17:41 09/18/18 17:41 09/18/18 17:41 09/18/18 17:41 09/18/18 17:41 - Notes Notes: Dictated Course - Vital Signs Vital signs: Temp Pulse Resp BP Pulse Ox 98.7 F 77 16 155/93 H 96 09/18/18 17:41 09/18/18 17:41 09/18/18 17:41 09/18/18 17:41 09/18/18 17:41 - Laboratory Result Diagrams: 09/18/18 19:48 - Diagnostic Test Radiology reviewed: Image reviewed - KUB showed large amount of fecal material Discharge - Discharge Clinical Impression: Constipation by delayed colonic transit Abdominal pain Qualifiers: Abdominal location: generalized Qualified Code(s): R10.84 - Generalized abdominal pain Condition: Fair Disposition: HOME, SELF-CARE Instructions: Abdominal Pain ([facility]), Bulk Laxatives, Constipation ([facility]) Prescriptions: Ketorolac Tromethamine [Toradol 10 mg Tablet] 10 mg PO Q6HP PRN #14 tablet PRN Reason: Dicyclomine HCl [Bentyl 10 mg Capsule] 1 cap PO TID #30 cap Lactulose [Cephulac Syrup 20 gm/30 ml Udcup] 20 gm PO BID #120 udc
[2018-09-18 20:36] VITALS: BP 152/95
== END 2018-09-18 20:36 | disposition home or self-care (01) ==
LOC: ER 17:33
DX: K59.01 Slow transit constipation (principal); R10.84 Generalized abdominal pain; R11.0 Nausea; I10 Essential (primary) hypertension; Z87.19 Personal history of other diseases of the digestive system; Z90.49 Acquired absence of other specified parts of digestive tract
CPT/HCPCS: 99284; 96372; 36415; 85025; 74018; J3490; J1885

== ENCOUNTER 2019-01-06 21:41 | Emergency (ER) | payer SELFPAY ==
[2019-01-06] MEDS ORDERED: ASPIRIN 81 MG TABLET, CHEWABLE PO ONE (21:42)
[2019-01-06] MEDS ORDERED: LIDOCAINE 2% VISCOUS SOLN 20 ML UDCUP PO ONE (22:29)
[2019-01-06] MEDS ORDERED: MAG HYDROX/AL HYDROX/SIMETH SUSP 30 ML UDCUP PO ONE (22:29)
[2019-01-06 22:34] LABS: ABSOLUTE BASOPHILS # (AUTO) 0.1 10^3/uL (0.0-0.2); ABSOLUTE EOSINOPHILS # (AUTO) 1.3 10^3/uL (0.0-0.6); ABSOLUTE LYMPHOCYTES (AUTO) 2.5 10^3/uL (0.5-4.7); ABSOLUTE MONOCYTES (AUTO) 0.8 10^3/uL (0.1-1.4); ABSOLUTE NEUT (AUTO) 6.9 10^3/uL (1.7-8.2); EOSINOPHILS % (AUTO) 11.1 % (0-6); HEMOGLOBIN 11.6 g/dL (12.0-15.5); LYMPHOCYTES % (AUTO) 21.2 % (13-45); MEAN CORPUSCULAR HEMOGLOBIN 26.5 pg (27.0-33.4); MEAN CORPUSCULAR HGB CONC 33.2 g/dL (32.0-36.0); MEAN CORPUSCULAR VOLUME 80 fl (80-97); MONOCYTES % (AUTO) 6.9 % (3-13); PLATELET COUNT 292 10^3/uL (150-450); RED BLOOD COUNT 4.39 10^6/uL (3.72-5.28); RED CELL DISTRIBUTION WIDTH 16.1 % (11.5-14.0); SEGMENTED NEUTROPHILS % (AUTO) 59.8 % (42-78); TOTAL CELLS COUNTED % (AUTO) 100 %; WHITE BLOOD COUNT 11.6 10^3/uL (4.0-10.5)
--- NOTE | 2019-01-06 22:44 | ER Document Report ---
ED General - General Chief Complaint: Chest Pain > 30 Stated Complaint: CHEST PAIN Time Seen by Provider: 01/06/19 22:20 TRAVEL OUTSIDE OF THE [place] IN LAST 30 DAYS: No - HPI Notes: Patient is a 43-year-old female presents to the emergency department for chest pain. She states it started yesterday while at rest. It is been constant since then. It seems to be worsened by lying in the supine position, sitting up makes it somewhat better. It does not seem to be affected by food. She points to her substernal region, states it radiates up in her neck and throat. She has had some associated nausea without emesis. Occasionally when her pain is significant she states she feels short of breath. She denies diaphoresis. She sees her doctor regularly. She is unsure what her blood pressure normally runs. She states she has cholesterol screening, has never had high cholesterol. Takes medication as prescribed. - Related Data Allergies/Adverse Reactions: No Known Allergies Allergy (Verified 01/06/19 22:30) Past Medical History - General Information source: Patient - Social History Smoking Status: Never Smoker Frequency of alcohol use: Occasional Drug Abuse: None Family History: Reviewed & Not Pertinent, CAD - Reports mother with stent placed in her 40s, Hypertension Patient has suicidal ideation: No Patient has homicidal ideation: No - Past Medical History Cardiac Medical History: Reports: Hx Hypertension Pulmonary Medical History: Denies: Hx Tuberculosis Neurological Medical History: Reports: Hx Migraine Endocrine Medical History: Denies: Hx Diabetes Mellitus Type 1, Hx Diabetes Mellitus Type 2 Renal/ Medical History: Denies: Hx Peritoneal Dialysis GI Medical History: Reports: Hx Diverticulitis. Denies: Hx Crohn's Disease, Hx Irritable Bowel, Hx Ulcerative Colitis Psychiatric Medical History: Denies: Hx Depression Past Surgical History: Reports: Hx Cholecystectomy. Denies: Hx Abdominal Surgery, Hx Appendectomy, Hx Bowel Surgery, Hx Breast Surgery, Hx Cardiac Catheterization, Hx Cardiac Surgery, Hx Section, Hx Genitourinary Surgery, Hx Gynecologic Surgery, Hx Hysterectomy, Hx Kidney (Renal Surgery), Hx Mastectomy, Hx Neurologic Surgery, Hx Nose Surgery, Hx Open Heart Surgery, Hx Oral Surgery, Hx Orthopedic Surgery, Hx Pacemaker, Hx Pancreatic Surgery, Hx Pituitary Surgery, Hx Rectal Surgery, Hx Thyroid Surgery, Hx Tonsillectomy, Hx Tubal Ligation, Hx Urinary Tract Surgery, Hx Vascular Surgery - Immunizations Hx Diphtheria, Pertussis, Tetanus Vaccination: No Hx Pneumococcal Vaccination: 10/07/14 Review of Systems - Review of Systems Constitutional: No symptoms reported Cardiovascular: See HPI Respiratory: No symptoms reported Gastrointestinal: See HPI Genitourinary: No symptoms reported Musculoskeletal: No symptoms reported Skin: No symptoms reported Neurological/Psychological: No symptoms reported Physical Exam - Vital signs Vitals: Temp Pulse Resp BP Pulse Ox 98.4 F 89 19 191/103 H 99 01/06/19 22:00 01/06/19 22:00 01/06/19 22:00 01/06/19 22:00 01/06/19 22:00 - Notes Notes: Vital signs reviewed, please refer to chart. Patient is normocephalic, atraumatic. Pupils equal round, reactive to light. Neck is supple without meningismus. Heart is regular rate and rhythm. Lungs are clear to auscultation bilaterally. Abdomen is soft, nontender, normoactive bowel sounds throughout. Extremities without cyanosis, clubbing, edema. Peripheral pulses are equal. Skin is warm and dry. Patient is awake, alert, neurological exam is nonfocal. Course - Re-evaluation Re-evalutation: 01/06/19 22:43 Patient presents to the emergency department for evaluation. She is obese, has high blood pressure, and a positive family history. Her story, however, is not markedly concerning for anginal type pain. She is given aspirin, also given a GI cocktail. EKG unremarkable. Will continue to follow. 01/07/19 02:38 Have been notified of patient's positive troponin. She was given nitroglycerin 1 sublingually and was chest pain-free. Nitropaste was applied. She is already on a beta-marah. She was started on heparin. She remained stable throughout the course of her stay. Delta troponin did in fact reveal an elevation. Patient complained of a headache and was given Tylenol. Will contact internal medicine for admission. 01/07/19 03:17 I was notified by nursing that the patient had developed chest pain again. It was a right sided heaviness, different from the chest pain she had originally. I am still concerned in this female who already has atypical pain that this is in fact unstable angina. She was started on a nitroglycerin drip. She now does meet criteria for transfer as outlined with internal medicine. Awaiting phone call at this time from [facility]. - Vital Signs Vital signs: Temp Pulse Resp BP Pulse Ox 98.4 F 89 15 179/97 H 100 01/06/19 22:00 01/06/19 22:00 01/07/19 03:43 01/07/19 03:43 01/07/19 03:43 - Laboratory Result Diagrams: 01/06/19 22:14 01/06/19 22:14 Laboratory results interpreted by me: 01/06/19 01/06/19 01/07/19 22:14 22:14 00:47 WBC 11.6 H Hgb 11.6 L Hct 35.0 L MCH 26.5 L RDW 16.1 H Eosinophils % 11.1 H Absolute Eosinophils 1.3 H Glucose 138 H AST 41 H Urine Blood SMALL H Ur Leukocyte Esterase SMALL H - Diagnostic Test Radiology reviewed: Reports reviewed - No acute process - EKG Interpretation by Me Additional EKG results interpreted by me: 01/06/19 22:43 Sinus rhythm with ventricular bigeminy. Normal axis and intervals, no acute ST changes concerning for ischemia or infarction. Discharge - Discharge Clinical Impression: Non-ST elevation (NSTEMI) myocardial infarction, Unstable angina Condition: Stable Disposition: Critical access hospital Admitting Provider: Sulaiman
[2019-01-06 22:54] LABS: ALANINE AMINOTRANSFERASE 18 U/L (9-52); ALBUMIN 4.1 g/dL (3.5-5.0); ALKALINE PHOSPHATASE 98 U/L (38-126); ANION GAP 9 (5-19); ASPARTATE AMINO TRANSFERASE 41 U/L (14-36); BILIRUBIN,DIRECT 0.2 mg/dL (0.0-0.4); BILIRUBIN,TOTAL 0.2 mg/dL (0.2-1.3); BLOOD UREA NITROGEN 19 mg/dL (7-20); CALCIUM 9.4 mg/dL (8.4-10.2); CARBON DIOXIDE 25 mmol/L (22-30); CHLORIDE 104 mmol/L (98-107); CREATINE KINASE 117 U/L (30-135); GLUCOSE 138 mg/dL (75-110); SODIUM 138.4 mmol/L (137-145); TOTAL PROTEIN 7.9 g/dL (6.3-8.2)
--- NOTE | 2019-01-06 22:58 | RADIOLOGY REPORT (SQ) ---
EXAM DESCRIPTION: XR CHEST 1 VIEW COMPLETED DATE/TME: 01/06/2019 21:42 CLINICAL HISTORY: 43 years, Female, CP COMPARISON: 10/16/2017 chest x-ray NUMBER OF VIEWS: 1 TECHNIQUE: Portable chest LIMITATIONS: None. FINDINGS: Heart size is stable. Lungs are clear. No pneumothorax IMPRESSION: No acute cardiopulmonary process copyright 2010 [employer]- All Rights Reserved
[2019-01-06 23:16] LABS: CREATINE KINASE MB 3.78 ng/mL (<4.55)
[2019-01-06 23:23] LABS: TROPONIN I 0.67 ng/mL
[2019-01-06] MEDS ORDERED: NITROGLYCERIN 0.4 MG/TAB 25 TAB/BOTTLE SL PRN (23:26)
[2019-01-07] MEDS ORDERED: NITROGLYCERIN 2% OINTMENT 1 GM PACKET TP ONE (00:20)
[2019-01-07] MEDS ORDERED: HEPARIN SODIUM,PORCINE/D5W 250 ML IV PRN (00:22)
[2019-01-07] MEDS ORDERED: HEPARIN SOD (PORCINE) 1,000 UNIT/ML 10 ML VIAL IV ONE (00:22)
[2019-01-07] MEDS ORDERED: HEPARIN SODIUM,PORCINE/D5W 25,000 UNIT/250 ML RTUINJ IV PRN (00:35)
[2019-01-07 00:43] LABS: INTERNATIONAL RATION (INR) 0.89; PROTHROMBIN TIME 12.5 SEC (11.4-15.4)
[2019-01-07 00:44] LABS: PARTIAL THROMBOPLASTIN TIME 26.2 SEC (23.5-35.8)
[2019-01-07 01:02] LABS: APPEARANCE,URINE CLEAR; BILIRUBIN,URINE NEGATIVE (NEGATIVE); COLOR,URINE STRAW; GLUCOSE, URINE NEGATIVE (NEGATIVE); KETONES,URINE NEGATIVE (NEGATIVE); LEUKOCYTE ESTERASE,URINE SMALL (NEGATIVE); NITRITE,URINE NEGATIVE (NEGATIVE); PROTEIN,URINE NEGATIVE (NEGATIVE); URINE SPECIFIC GRAVITY 1.011; UROBILINOGEN,URINE NEGATIVE mg/dL (<2.0)
[2019-01-07] MEDS ORDERED: NITROGLYCERIN/D5W 50 MG/250 ML RTUINJ IV PRN (02:21)
[2019-01-07] MEDS ORDERED: ACETAMINOPHEN 325 MG TABLET PO ONE (02:33)
[2019-01-07] MEDS ORDERED: HEPARIN SOD (PORCINE) 1,000 UNIT/ML 10 ML VIAL IV PRN (03:22)
[2019-01-07 03:23] LABS: URINE AMPHETAMINES SCREEN NEGATIVE; URINE BARBITURATES SCREEN NEGATIVE; URINE BENZODIAZEPINES SCREEN NEGATIVE; URINE COCAINE SCREEN NEGATIVE; URINE MARIJUANA (THC) SCREEN NEGATIVE; URINE METHADONE SCREEN NEGATIVE; URINE PHENCYCLIDINE SCREEN NEGATIVE
[2019-01-07 05:27] VITALS: BP 160/110
--- NOTE | 2019-01-07 07:53 | EKG REPORT ---
SEVERITY:- ABNORMAL ECG - SINUS RHYTHM VENTRICULAR BIGEMINY NONSPECIFIC ST-T CHANGES- INFERIOR LEADS : Confirmed by: Toby Snell MD 07-Jan-2019 07:53:00
== END 2019-01-07 05:33 | disposition short-term general hospital (02) ==
LOC: ER 21:41
DX: I21.4 Non-ST elevation (NSTEMI) myocardial infarction (principal); I20.9 Angina pectoris, unspecified; I10 Essential (primary) hypertension; Z90.49 Acquired absence of other specified parts of digestive tract
CPT/HCPCS: 93005; 99285; 96365; 96366; 96368; 36415; 82553; 82550; 85025; 85610; 85730; 80053; 81001; 84484; 80307; 71045; 93010; J1644 ×2; J3490 ×2

== ENCOUNTER → 2020-06-21 | Outpatient (CLI) | payer SELFPAY ==
[2020-06-21 12:40] LABS: ALBUMIN 4.1 g/dL (3.5-5.0); ALKALINE PHOSPHATASE 113 U/L (38-126); ANION GAP 9 (5-19); ASPARTATE AMINO TRANSFERASE 26 U/L (14-36); BILIRUBIN,DIRECT 0.2 mg/dL (0.0-0.4); BILIRUBIN,TOTAL 0.5 mg/dL (0.2-1.3); BLOOD UREA NITROGEN 15 mg/dL (7-20); CALCIUM 9.3 mg/dL (8.4-10.2); CARBON DIOXIDE 24 mmol/L (22-30); CHLORIDE 106 mmol/L (98-107); CHOLESTEROL 160.45 mg/dL (0-200); GLUCOSE 93 mg/dL (75-110); POTASSIUM 4.5 mmol/L (3.6-5.0); TOTAL PROTEIN 7.1 g/dL (6.3-8.2); TRIGLYCERIDES 178 mg/dL (<150)
[2020-06-21 12:50] LABS: DIRECT LDL 82 mg/dL (<100)
[2020-06-21 12:55] LABS: VLDL CHOLESTEROL 35.6 mg/dL (10-31)
== END ==
LOC: OD 11:01
PROVIDERS: ATTEND Family Medicine
DX: I10 Essential (primary) hypertension (principal); E78.2 Mixed hyperlipidemia; I25.119 Atherosclerotic heart disease of native coronary artery with unspecified angina pectoris
CPT/HCPCS: 36415; 80053; 80061

== ENCOUNTER 2020-06-27 17:03 | Emergency (ER) | payer SELFPAY ==
[2020-06-27] MEDS ORDERED: CLONIDINE HCL 0.1 MG TABLET PO ONE (18:58)
--- NOTE | 2020-06-27 19:02 | ER Document Report ---
ED Medical Screen (RME) - General Chief Complaint: hypertension Stated Complaint: POSSIBE HIGH BLOOD PRESSURE Time Seen by Provider: 06/27/20 18:58 Primary Care Provider: MURRAY NAPIER MD [Primary Care Provider] - Follow up as needed Mode of Arrival: Ambulatory Information source: Patient Notes: HPI; 44-year-old female past medical history significant for hypertension and hyperlipidemia presents emergency room with intermittent chest pain and elevated blood pressure. States she been having the pain for 3 to 4 days. When checking her blood pressure this morning she noted it was 190/126. States she was unable to secure an appointment with her doctor's office. States she went to [facility] and was referred to the emergency room. Patient did not initially state that she was having chest pain when she was being registered. Patient did not get an EKG on signing in due to the fact of not telling anyone she was having chest pain. She describes it as a sharp stabbing pain in her chest. Patient states she does take 325 mg of aspirin daily. PE: Alert and oriented x3. Mild distress noted. Lungs: Clear to auscultation without rales, rhonchi, wheezes. Heart: Regular rate rhythm without murmurs, rubs, gallops. I have greeted and performed a rapid initial assessment of this patient. A comprehensive ED assessment and evaluation of the patient, analysis of test results and completion of the medical decision making process will be conducted by additional ED providers. I have specifically instructed the patient or family members with the patient to immediately return to any nursing staff should anything change in the patient's condition or with their chief complaint. TRAVEL OUTSIDE OF THE [place] IN LAST 30 DAYS: No - Related Data Allergies/Adverse Reactions: No Known Allergies Allergy (Verified 01/06/19 22:30) Home Medications: metoprololo, losartan, atorvastatin Past Medical History - Social History Chew tobacco use (# tins/day): No Frequency of alcohol use: Occasional - Past Medical History Cardiac Medical History: Reports: Hx Hypertension Pulmonary Medical History: Denies: Hx Tuberculosis Neurological Medical History: Reports: Hx Migraine Endocrine Medical History: Denies: Hx Diabetes Mellitus Type 1, Hx Diabetes Mellitus Type 2 Renal/ Medical History: Denies: Hx Peritoneal Dialysis GI Medical History: Reports: Hx Diverticulitis. Denies: Hx Crohn's Disease, Hx Irritable Bowel, Hx Ulcerative Colitis Psychiatric Medical History: Denies: Hx Depression Past Surgical History: Reports: Hx Cholecystectomy. Denies: Hx Abdominal Surgery, Hx Appendectomy, Hx Bowel Surgery, Hx Breast Surgery, Hx Cardiac Catheterization, Hx Cardiac Surgery, Hx Section, Hx Genitourinary Surgery, Hx Gynecologic Surgery, Hx Hysterectomy, Hx Kidney (Renal Surgery), Hx Mastectomy, Hx Neurologic Surgery, Hx Nose Surgery, Hx Open Heart Surgery, Hx Oral Surgery, Hx Orthopedic Surgery, Hx Pacemaker, Hx Pancreatic Surgery, Hx Pituitary Surgery, Hx Rectal Surgery, Hx Thyroid Surgery, Hx Tonsillectomy, Hx Tubal Ligation, Hx Urinary Tract Surgery, Hx Vascular Surgery - Immunizations Hx Diphtheria, Pertussis, Tetanus Vaccination: No Physical Exam - Vital signs Vitals: Temp Pulse Resp BP Pulse Ox 98.1 F 84 20 209/105 H 100 06/27/20 17:11 06/27/20 17:11 06/27/20 17:11 06/27/20 17:11 06/27/20 17:11 Course - Vital Signs Vital signs: Temp Pulse Resp BP Pulse Ox 98.1 F 84 20 209/105 H 100 06/27/20 17:11 06/27/20 17:11 06/27/20 17:11 06/27/20 17:11 06/27/20 17:11 Doctor's Discharge - Discharge Referrals: MURRAY NAPIER MD [Primary Care Provider] - Follow up as needed
[2020-06-27 19:22] LABS: ABSOLUTE BASOPHILS # (AUTO) 0.1 10^3/uL (0.0-0.2); ABSOLUTE LYMPHOCYTES (AUTO) 2.2 10^3/uL (0.5-4.7); ABSOLUTE MONOCYTES (AUTO) 0.5 10^3/uL (0.1-1.4); ABSOLUTE NEUT (AUTO) 4.8 10^3/uL (1.7-8.2); EOSINOPHILS % (AUTO) 11.2 % (0-6); HEMATOCRIT 36.8 % (36.0-47.0); HEMOGLOBIN 11.8 g/dL (12.0-15.5); LYMPHOCYTES % (AUTO) 25.9 % (13-45); MEAN CORPUSCULAR HEMOGLOBIN 24.9 pg (27.0-33.4); MEAN CORPUSCULAR HGB CONC 32.1 g/dL (32.0-36.0); MEAN CORPUSCULAR VOLUME 78 fl (80-97); MONOCYTES % (AUTO) 5.8 % (3-13); PLATELET COUNT 292 10^3/uL (150-450); RED BLOOD COUNT 4.74 10^6/uL (3.72-5.28); SEGMENTED NEUTROPHILS % (AUTO) 56.1 % (42-78); TOTAL CELLS COUNTED % (AUTO) 100 %; WHITE BLOOD COUNT 8.6 10^3/uL (4.0-10.5)
[2020-06-27 19:40] LABS: ALBUMIN 4.6 g/dL (3.5-5.0); ALKALINE PHOSPHATASE 125 U/L (38-126); ANION GAP 8 (5-19); ASPARTATE AMINO TRANSFERASE 25 U/L (14-36); BILIRUBIN,DIRECT 0.3 mg/dL (0.0-0.4); BILIRUBIN,TOTAL 0.4 mg/dL (0.2-1.3); BLOOD UREA NITROGEN 18 mg/dL (7-20); CALCIUM 9.7 mg/dL (8.4-10.2); CARBON DIOXIDE 28 mmol/L (22-30); CHLORIDE 103 mmol/L (98-107); CREATINE KINASE 88 U/L (30-135); GLUCOSE 95 mg/dL (75-110); POTASSIUM 4.3 mmol/L (3.6-5.0); TOTAL PROTEIN 8.1 g/dL (6.3-8.2)
--- NOTE | 2020-06-27 19:50 | RADIOLOGY REPORT (SQ) ---
EXAM DESCRIPTION: CHEST 2 VIEWS IMAGES COMPLETED DATE/TIME: 06/27/2020 7:30 pm REASON FOR STUDY: chest pain COMPARISON: 01/06/2019 EXAM PARAMETERS: NUMBER OF VIEWS: two views TECHNIQUE: Digital Frontal and Lateral radiographic views of the chest acquired. RADIATION DOSE: NA LIMITATIONS: none FINDINGS: LUNGS AND PLEURA: No opacities, masses or pneumothorax. No pleural effusion. MEDIASTINUM AND HILAR STRUCTURES: No masses or contour abnormalities. HEART AND VASCULAR STRUCTURES: Heart normal size. No evidence for failure. BONES: No acute findings. HARDWARE: Sternotomy wires. OTHER: No other significant finding. IMPRESSION: NO ACUTE RADIOGRAPHIC FINDING IN THE CHEST. TECHNICAL DOCUMENTATION: JOB ID: [id number] 2010 [employer]- All Rights Reserved Reading location - IP/workstation name: [email or web address]
[2020-06-27 19:52] LABS: CREATINE KINASE MB 0.73 ng/mL (<4.55)
[2020-06-27 20:00] LABS: TROPONIN I < 0.012 ng/mL
--- NOTE | 2020-06-27 20:24 | ER Document Report ---
ED General - General Chief Complaint: hypertension Stated Complaint: POSSIBE HIGH BLOOD PRESSURE Time Seen by Provider: 06/27/20 18:58 Primary Care Provider: MURRAY NAPIER MD [Primary Care Provider] - Follow up as needed Mode of Arrival: Ambulatory TRAVEL OUTSIDE OF THE [place] IN LAST 30 DAYS: No - HPI Notes: 44-year-old female presents with high blood pressure reading at home. Patient states that this morning she took her blood pressure and was high, 190/126. She states she called her PCP but was unable to get appointment, states that she then went to an urgent care, however there her blood pressure was 188 states she was sent to the emergency department. She reports compliance with metoprolol 50 mg and losartan 100 mg. She currently denies complaints. She states that she has not been eating well or exercising, she has gained weight. Has not been watching her diet, has been consuming a lot of salt. She states that however this past week she has determined that she needs to get back on track. Additionally missed a dose of metoprolol last night. Per the triage note there was documented that patient had chest pain. Patient denies this. On further discussion she states that about 2 days ago she had a brief episode of chest p ain, described as cramping in central chest, did not radiate, spontaneously resolved. She states that she will still intermittently get chest pain here and there, but adamantly denies any chest pain now. Denies shortness of breath or leg swelling. Initially states that she was anxious when she first checked into the emergency department as the last time she was here she had to be transferred and was nervous about that. States she would like to go home. - Related Data Allergies/Adverse Reactions: No Known Allergies Allergy (Verified 01/06/19 22:30) Home Medications: metoprolol, losartan, atorvastatin Past Medical History - General Information source: Patient - Social History Smoking Status: Never Smoker Chew tobacco use (# tins/day): No Frequency of alcohol use: Occasional Family History: Reviewed & Not Pertinent, CAD - Reports mother with stent placed in her 40s, Hypertension Patient has homicidal ideation: No - Past Medical History Cardiac Medical History: Reports: Hx Hypertension Pulmonary Medical History: Denies: Hx Tuberculosis Neurological Medical History: Reports: Hx Migraine Endocrine Medical History: Denies: Hx Diabetes Mellitus Type 1, Hx Diabetes Mellitus Type 2 Renal/ Medical History: Denies: Hx Peritoneal Dialysis GI Medical History: Reports: Hx Diverticulitis. Denies: Hx Crohn's Disease, Hx Irritable Bowel, Hx Ulcerative Colitis Psychiatric Medical History: Denies: Hx Depression Past Surgical History: Reports: Hx Cholecystectomy. Denies: Hx Abdominal Surgery, Hx Appendectomy, Hx Bowel Surgery, Hx Breast Surgery, Hx Cardiac Catheterization, Hx Cardiac Surgery, Hx Section, Hx Genitourinary Surgery, Hx Gynecologic Surgery, Hx Hysterectomy, Hx Kidney (Renal Surgery), Hx Mastectomy, Hx Neurologic Surgery, Hx Nose Surgery, Hx Open Heart Surgery, Hx Or al Surgery, Hx Orthopedic Surgery, Hx Pacemaker, Hx Pancreatic Surgery, Hx Pituitary Surgery, Hx Rectal Surgery, Hx Thyroid Surgery, Hx Tonsillectomy, Hx Tubal Ligation, Hx Urinary Tract Surgery, Hx Vascular Surgery - Immunizations Hx Diphtheria, Pertussis, Tetanus Vaccination: No Hx Pneumococcal Vaccination: 10/07/14 Review of Systems - Review of Systems Constitutional: denies: Chills, Fever EENT: denies: Double vision Cardiovascular: denies: Chest pain Respiratory: denies: Short of breath Gastrointestinal: denies: Abdominal pain Genitourinary: No symptoms reported Female Genitourinary: No symptoms reported Musculoskeletal: denies: Joint pain, Muscle pain Skin: No symptoms reported Neurological/Psychological: denies: Headaches Physical Exam - Vital signs Vitals: Temp Pulse Resp BP Pulse Ox 98.1 F 84 20 209/105 H 100 06/27/20 17:11 06/27/20 17:11 06/27/20 17:11 06/27/20 17:11 06/27/20 17:11 - General General appearance: Appears well In distress: None Course - Re-evaluation Re-evalutation: 44-year-old female presents with elevated blood pressure, has a history of hypertension. Reports compliance with meds other than missing 1 dose last night. Currently denies any sort of complaints. On exam she is well-appearing, lungs are clear, heart regular rate and rhythm, pulses symmetric, no peripheral edema. Patient did have episode of chest pain about 2 days ago, based on her description would have a low suspicion for cardiac etiology at this time. Her blood pressure has down trended, she did receive a dose of oral clonidine via the triage process. Additionally labs were checked via triage which have been reviewed. She has no leukocytosis. Her hemoglobin is at baseline. Her electrolytes within normal limits. Creatinine is within normal limits. Troponin and other cardiac markers are negative. is negative. Her chest x-ray has no acute finding. Her EKG is nonischemic. Patient reports that she has PCP follow-up in a week. She would like to go home at this time. In shared decision making, feel that this is reasonable to do so. Patient was given strict return precautions, she is stable at time of discharge. - Vital Signs Vital signs: Temp Pulse Resp BP Pulse Ox 98.1 F 84 19 177/97 H 100 06/27/20 17:11 06/27/20 17:11 06/27/20 20:31 06/27/20 20:31 06/27/20 20:31 - Laboratory Result Diagrams: 06/27/20 19:10 06/27/20 19:10 Laboratory results interpreted by me: 06/27/20 19:10 Hgb 11.8 L MCV 78 L MCH 24.9 L RDW 17.0 H Eos % (Auto) 11.2 H Absolute Eos (auto) 1.0 H - Diagnostic Test Radiology reviewed: Image reviewed, Reports reviewed - EKG Interpretation by Me Additional EKG results interpreted by me: EKG is interpreted by me. Sinus rhythm, rate 74. Narrow QRS, QTC within normal limits. No ST segment elevation. Discharge - Discharge Clinical Impression: Hypertension Qualifiers: Hypertension type: essential hypertension Qualified Code(s): I10 - Essential (primary) hypertension Condition: Stable Disposition: HOME, SELF-CARE Instructions: High Blood Pressure ([facility]) Additional Instructions: As discussed, please be sure to adhere to a good diet and continue exercising. Have close follow-up with your primary care doctor. Continue all medications as prescribed. Return to the emergency department for any concerning or worsening symptoms. Referrals: MURRAY NAPIER MD [Primary Care Provider] - Follow up as needed
[2020-06-27 21:12] VITALS: BP 151/100
--- NOTE | 2020-06-28 08:37 | EKG REPORT ---
SEVERITY:- BORDERLINE ECG - SINUS RHYTHM PROBABLE LEFT ATRIAL ABNORMALITY : Confirmed by: Tarah Vargas MD 28-Jun-2020 08:36:05
== END 2020-06-27 21:15 | disposition home or self-care (01) ==
LOC: ER 17:03
DX: I10 Essential (primary) hypertension (principal)
CPT/HCPCS: 36415; 71046; 80053; 82550; 82553; 84484; 84703; 85025; 93005; 93010; 99285

== ENCOUNTER → 2020-06-30 | Outpatient (CLI) | payer BC ==
--- NOTE | 2020-06-30 10:57 | WOMENS IMAGING REPORT ---
EXAM DESCRIPTION: [place] 3D BILAT SCREEN IMAGES COMPLETED DATE/TIME: 06/30/2020 9:56 am REASON FOR STUDY: Z12.31 ENCOUNTER FOR SCREENING MAMMOGRAM FOR MALIGNANT NEOPLASM OF BREAST Z12.31 ENCNTR SCREEN MAMMOGRAM FOR MALIGNANT NEOPLASM OF ERIK COMPARISON: 2016 EXAM PARAMETERS: Views: Standard craniocaudal and mediolateral oblique views of each breast recorded using digital acquisition and breast tomosynthesis. Read with the assistance of CAD. .[facility] - R2 [employer] Version 9.2 LIMITATIONS: None. FINDINGS: No suspicious masses, suspicious calcifications or architectural distortion. No areas of c oncern. IMPRESSION: NEGATIVE MAMMOGRAM. BIRADS 1. BREAST DENSITY: c. The breasts are heterogeneously dense, which may obscure small masses. BIRAD: ASSESSMENT: 1 NEGATIVE RECOMMENDATION: ROUTINE SCREENING COMMENT: The patient has been notified of the results by letter per MQSA requirements. Additional no tification policies are in place for contacting patient with suspicious or incomplete findings. Quality ID #225: The [employer] recommends an annual screening mammogram for women aged 40 years or over. This facility utilizes a reminder system to ensure that all patients receive reminder letters, and/or direct phone calls for appointments. This includes reminders for routine scr eening mammograms, diagnostic mammograms, or other Breast Imaging Interventions when appropriate. Th is patient will be placed in the appropriate reminder system. TECHNICAL DOCUMENTATION: FINDING NUMBER: (1) ASSESSMENT: (1) JOB ID: [id number] 2010 [employer]- All Rights Reserved Reading location - IP/workstation name: [email or web address]
== END ==
LOC: WI 09:42
PROVIDERS: ATTEND Nurse Practitioner Family
DX: Z12.31 Encounter for screening mammogram for malignant neoplasm of breast (principal)
CPT/HCPCS: 77063

== ENCOUNTER 2020-10-31 10:40 | Emergency (ER) | payer SELFPAY ==
[2020-10-31 11:22] LABS: ABSOLUTE EOSINOPHILS # (AUTO) 0.8 10^3/uL (0.0-0.6); ABSOLUTE LYMPHOCYTES (AUTO) 1.1 10^3/uL (0.5-4.7); ABSOLUTE MONOCYTES (AUTO) 0.6 10^3/uL (0.1-1.4); ABSOLUTE NEUT (AUTO) 6.7 10^3/uL (1.7-8.2); BASOPHILS % (AUTO) 0.3 % (0-2); EOSINOPHILS % (AUTO) 8.3 % (0-6); HEMOGLOBIN 12.9 g/dL (12.0-15.5); LYMPHOCYTES % (AUTO) 11.8 % (13-45); MEAN CORPUSCULAR HEMOGLOBIN 25.7 pg (27.0-33.4); MEAN CORPUSCULAR HGB CONC 33.1 g/dL (32.0-36.0); MEAN CORPUSCULAR VOLUME 78 fl (80-97); MONOCYTES % (AUTO) 6.5 % (3-13); PLATELET COUNT 409 10^3/uL (150-450); RED BLOOD COUNT 5.03 10^6/uL (3.72-5.28); RED CELL DISTRIBUTION WIDTH 16.4 % (11.5-14.0); SEGMENTED NEUTROPHILS % (AUTO) 73.1 % (42-78); TOTAL CELLS COUNTED % (AUTO) 100 %; WHITE BLOOD COUNT 9.1 10^3/uL (4.0-10.5)
[2020-10-31 11:52] LABS: ALBUMIN 3.9 g/dL (3.5-5.0); ALKALINE PHOSPHATASE 107 U/L (38-126); ANION GAP 15 (5-19); ASPARTATE AMINO TRANSFERASE 31 U/L (14-36); BILIRUBIN,DIRECT 0.3 mg/dL (0.0-0.4); BILIRUBIN,TOTAL 0.4 mg/dL (0.2-1.3); BLOOD UREA NITROGEN 22 mg/dL (7-20); CARBON DIOXIDE 21 mmol/L (22-30); CHLORIDE 108 mmol/L (98-107); GLUCOSE 110 mg/dL (75-110); POTASSIUM 3.7 mmol/L (3.6-5.0); TOTAL PROTEIN 7.9 g/dL (6.3-8.2)
[2020-10-31] MEDS ORDERED: METOPROLOL TARTRATE 50 MG TABLET PO ONE (12:02)
--- NOTE | 2020-10-31 12:09 | RADIOLOGY REPORT (SQ) ---
EXAM DESCRIPTION: CHEST SINGLE VIEW IMAGES COMPLETED DATE/TIME: 10/31/2020 12:00 pm REASON FOR STUDY: CHEST PAIN COMPARISON: 06/27/2020. EXAM PARAMETERS: NUMBER OF VIEWS: One view. TECHNIQUE: Single frontal radiographic view of the chest acquired. RADIATION DOSE: NA LIMITATIONS: None. FINDINGS: LUNGS AND PLEURA: Suboptimal inspiration. No opacities, masses or pneumothorax. No pleura l effusion. MEDIASTINUM AND HILAR STRUCTURES: No masses. Contour normal. HEART AND VASCULAR STRUCTURES: Heart upper limits of normal in size. Normal vasculature. BONES: No acute findings. HARDWARE: Sternotomy wires. OTHER: No other significant finding. IMPRESSION: SUBOPTIMAL INSPIRATION. NO ACUTE RADIOGRAPHIC FINDING IN THE CHEST. TECHNICAL DOCUMENTATION: JOB ID: [id number] 2010 [employer]- All Rights Reserved Reading location - IP/workstation name: [email or web address]
[2020-10-31 12:20] LABS: APPEARANCE,URINE CLEAR; BILIRUBIN,URINE NEGATIVE (NEGATIVE); COLOR,URINE YELLOW; GLUCOSE, URINE NEGATIVE (NEGATIVE); KETONES,URINE NEGATIVE (NEGATIVE); LEUKOCYTE ESTERASE,URINE NEGATIVE (NEGATIVE); NITRITE,URINE NEGATIVE (NEGATIVE); PROTEIN,URINE NEGATIVE (NEGATIVE); URINE SPECIFIC GRAVITY 1.009; UROBILINOGEN,URINE NEGATIVE mg/dL (<2.0)
[2020-10-31 12:45] LABS: C-REACTIVE PROTEIN 78.4 mg/L (<10.0)
[2020-10-31 13:17] LABS: FERRITIN 55.7 ng/mL (6.2-137.0)
--- NOTE | 2020-10-31 13:21 | RADIOLOGY REPORT (SQ) ---
EXAM DESCRIPTION: CTA CHEST IMAGES COMPLETED DATE/TIME: 10/31/2020 1:04 pm REASON FOR STUDY: sob/+covid 2 weeks ago COMPARISON: None. TECHNIQUE: CT scan of the chest performed using helical scanning technique with dynamic intravenous contrast injection. Images reviewed with lung, soft tissue and bone windows. Reconstructed coronal and sagittal MPR images reviewed. Additional 3 dimensional post-processing performed to develop Maximal Intensity Projection images (CT P). All images stored on PACS. All CT scanners at this facility use dose modulation, iterative reconstruction, and/or weight based d osing when appropriate to reduce radiation dose to as low as reasonably achievable (ALARA). [facility]: Dose Right [facility]: CareDose [facility]: Dose Right [facility]: Teradose 4D [facility]: [employer] CONTRAST TYPE AND DOSE: contrast/concentration: Isovue 350.00 mmol/ml; Total Contrast Delivered: 70. 0 ml; Total Saline Delivered: 27.8 ml Contrast bolus adequate for pulmonary arteries and aorta. RENAL FUNCTION: BUN 22 creatinine 1.1 RADIATION DOSE: CT Rad equipment meets quality standard of care and radiation dose reduction techniq ues were employed. CTDIvol: 19.8 - 28.9 mGy. DLP: 940 mGy-cm. . LIMITATIONS: None. FINDINGS: LUNGS AND PLEURA: Patchy, generally peripheral ground-glass infiltrates are seen bilateral ly. No pleural effusion. No mass. AORTA AND GREAT VESSELS: No aneurysm. Bolus is satisfactory for evaluation of the aorta. However, a rtifact from the dense contrast in the superior vena cava makes it difficult to evaluate the ascendin g aorta with regard to dissection. HEART: No pericardial effusion. Prior CABG. PULMONARY ARTERIES: No emboli visualized in the main pulmonary arteries or the segmental branches. HILAR AND MEDIASTINAL STRUCTURES: No identified masses or abnormal nodes. HARDWARE: None in the chest. UPPER ABDOMEN: No significant findings. Limited exam. THYROID AND OTHER SOFT TISSUES: No masses. No adenopathy. BONES: No acute or significant finding. 3D MIPS: Confirm above findings. OTHER: No other significant finding. IMPRESSION: 1. There is no pulmonary embolus. There is no aortic aneurysm. There is no obvious di ssection. 2. There are patchy ground-glass infiltrates bilaterally concerning for an atypical infectious/ infl ammatory process such as COVID-19 pneumonia. COMMENT: Quality ID # [id number]: Final reports with documentation of one or more dose reduction techniques (e.g., Automated exposure control, adjustment of the mA and/or kV according to patient size, use of iterative reconstruction technique) TECHNICAL DOCUMENTATION: JOB ID: [id number] 2010 [employer]- All Rights Reserved Reading location - IP/workstation name: [email or web address]
--- NOTE | 2020-10-31 14:26 | ER Document Report ---
ED General - General Stated Complaint: DIFFICULTY BREATHING Time Seen by Provider: 10/31/20 11:23 Mode of Arrival: Ambulatory Information source: Patient TRAVEL OUTSIDE OF THE [place] IN LAST 30 DAYS: No - HPI Notes: Patient presents stating that she had a positive Covid test approximately 10 days ago. She comes in now because she is short of breath. She has had some diarrhea but no vomiting. She has had some subjective fever and chills. The shortness of breath is moderate. It is worse with exertion and better with resting. She denies any significant chronic medical problems. - Related Data Allergies/Adverse Reactions: No Known Allergies Allergy (Verified 01/06/19 22:30) Home Medications: Losartan, Atorvastatin, Metoprolol. Past Medical History - General Information source: Patient - Social History Smoking Status: Never Smoker Frequency of alcohol use: None Drug Abuse: None Family History: Reviewed & Not Pertinent, CAD, Hypertension - Past Medical History Cardiac Medical History: Reports: Hx Hypertension Pulmonary Medical History: Denies: Hx Tuberculosis Neurological Medical History: Reports: Hx Migraine Endocrine Medical History: Denies: Hx Diabetes Mellitus Type 1, Hx Diabetes Mellitus Type 2 Renal/ Medical History: Denies: Hx Peritoneal Dialysis GI Medical History: Reports: Hx Diverticulitis. Denies: Hx Crohn's Disease, Hx Irritable Bowel, Hx Ulcerative Colitis Psychiatric Medical History: Denies: Hx Depression Past Surgical History: Reports: Hx Cholecystectomy. Denies: Hx Abdominal Surgery, Hx Appendectomy, Hx Bowel Surgery, Hx Breast Surgery, Hx Cardiac Catheterization, Hx Cardiac Surgery, Hx Section, Hx Genitourinary Surgery, Hx Gynecologic Surgery, Hx Hysterectomy, Hx Kidney (Renal Surgery), Hx Mastectomy, Hx Neurologic Surgery, Hx Nose Surgery, Hx Open Heart Surgery, Hx Oral Surgery, Hx Orthopedic Surgery, Hx Pacemaker, Hx Pancreatic Surgery, Hx Pituitary Surgery, Hx Rectal Surgery, Hx Thyroid Surgery, Hx Tonsillectomy, Hx Tubal Ligation, Hx Urinary Tract Surgery, Hx Vascular Surgery - Immunizations Hx Diphtheria, Pertussis, Tetanus Vaccination: No Hx Pneumococcal Vaccination: 10/07/14 Review of Systems - Review of Systems Constitutional: Chills, Fever, Recent illness Cardiovascular: denies: Chest pain, Palpitations Respiratory: Cough, Short of breath -: Yes All other systems reviewed and negative Physical Exam - Vital signs Vitals: Resp 39 H 10/31/20 10:45 Interpretation: Normal - General General appearance: Appears well, Alert - HEENT Head: Normocephalic, Atraumatic Eyes: Normal Pupils: PERRL - Respiratory Respiratory status: No respiratory distress Breath sounds: Normal - Cardiovascular Rhythm: Regular Notes: no jvd - Abdominal Inspection: Normal Distension: No distension - Back Back: Normal, Nontender - Extremities General upper extremity: Normal inspection, Normal color General lower extremity: Normal inspection, Normal color, Normal weight bearing - Neurological Neuro grossly intact: Yes Cognition: Normal Orientation: AAOx4 Julio Coma Scale Eye Opening: Spontaneous [place] Coma Scale Verbal: Oriented Naz[place]i Coma Scale Motor: Obeys Commands Nazlini Coma Scale Total: 15 Speech: Normal Motor strength normal: LUE, RUE, LLE, RLE Sensory: Normal - Psychological Associated symptoms: Normal affect, Normal mood - Skin Skin Moisture: Dry Skin Color: Normal Course - Re-evaluation Re-evalutation: 10/31/20 14:24 This known Covid positive patient presents with shortness of breath. Vital signs here are stable including pulse ox of 90% on room air. She is not tachypneic or tachycardic. CT scan does show bilateral groundglass infiltrates consistent with Covid however I do not feel the patient would benefit from inpatient therapy at this time. - Vital Signs Vital signs: Temp Pulse Resp BP Pulse Ox 98.6 F 22 H 158/103 H 98 10/31/20 13:44 10/31/20 13:44 10/31/20 13:44 10/31/20 13:44 - Laboratory Results Result Diagrams: 10/31/20 11:09 10/31/20 11:09 Laboratory Results Interpreted: 10/31/20 10/31/20 10/31/20 11:09 11:09 11:09 MCV 78 L MCH 25.7 L RDW 16.4 H Lymph % (Auto) 11.8 L Eos % (Auto) 8.3 H Absolute Eos (auto) 0.8 H D-Dimer 0.55 H Chloride 108 H Carbon Dioxide 21 L BUN 22 H Est GFR (MDRD) Non-Af 54 L Lactate Dehydrogenase C-Reactive Protein Urine Blood SARS-CoV-2 (PCR) 10/31/20 10/31/20 10/31/20 11:09 11:51 12:50 MCV MCH RDW Lymph % (Auto) Eos % (Auto) Absolute Eos (auto) D-Dimer Chloride Carbon Dioxide BUN Est GFR (MDRD) Non-Af Lactate Dehydrogenase 311 H C-Reactive Protein 78.4 H Urine Blood SMALL H SARS-CoV-2 (PCR) DETECTED H Critical Laboratory Results Reviewed: No Critical Results - Radiology Results Critical Radiology Results Reviewed: Yes Attending or Supervising Physician who Reviewed Radiology: RONAL PAL - EKG Interpretation by Hi EKG shows normal: Sinus rhythm Rate: Normal - 75 Rhythm: NSR [place]/QRS: No: Right axis deviation, Left axis deviation Discharge - Discharge Clinical Impression: Pneumonia due to COVID-19 virus Condition: Stable Disposition: HOME, SELF-CARE Instructions: COVID-19 Guidance for Persons Under Investigation Additional Instructions: Please return if you have problems with breathing or feeling short of breath, fevers or any other concerns. Forms: Return to Work Referrals: [facility] [Provider Group] - Follow up as needed
[2020-10-31 15:14] VITALS: BP 162/103
--- NOTE | 2020-10-31 16:55 | EKG REPORT ---
SEVERITY:- ABNORMAL ECG - SINUS RHYTHM LEFT ATRIAL ABNORMALITY PROBABLE INFERIOR INFARCT, AGE INDETERMINATE : Confirmed by: Christopher Wilde MD 31-Oct-2020 16:54:59
== END 2020-10-31 15:15 | disposition home or self-care (01) ==
LOC: ER 10:40
DX: U07.1 COVID-19 (principal); J12.89 Other viral pneumonia; R19.7 Diarrhea, unspecified; R50.9 Fever, unspecified; R06.02 Shortness of breath; Z79.899 Other long term (current) drug therapy; I10 Essential (primary) hypertension
CPT/HCPCS: 93005; 99285; 36415; 82728; 83615; 85025; 0202U; 86140; 80053; 81001; 84484; 85379; 71045; 71275; 93010; C9803